=== PATIENT | male | born 1970 | race African-American/Black ===

== ENCOUNTER 2016-09-22 11:00 | Inpatient (IN) | payer OTHER ==
[2016-09-22 11:26] VITALS: BMI 29.7
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
[2016-09-22] MEDS ORDERED: guaiFENesin/D-METHORPHAN HB 10 ML UNIT-DOSE CUPS PO PRN (12:57)
[2016-09-22] MEDS ORDERED: MAGNESIUM HYDROX 2400MG/30ML ORAL SUSPENSION 30 ML CUP PO PRN (12:57)
[2016-09-22] MEDS ORDERED: MAGNESIUM CITRATE 300 ML BOTTLE PO PRN (12:57)
[2016-09-22] MEDS ORDERED: hydrOXYzine PAMOATE 50 MG CAPSULE (FP) PO PRN (12:57)
[2016-09-22] MEDS ORDERED: MAG HYDROX/AL HYDROX/SIMETH 30 ML UNIT-DOSE CUP PO PRN (12:57)
[2016-09-22] MEDS ORDERED: P-EPHED 60MG/TRIPROLIDI 2.5MG TABLET PO PRN (12:57)
[2016-09-22] MEDS ORDERED: ACETAMINOPHEN 325 MG TABLET (FP) PO PRN (12:57)
[2016-09-22] MEDS ORDERED: diphenhydrAMINE HCL 50 MG CAPSULE PO PRN (12:57)
[2016-09-22] MEDS ORDERED: chlordiazePOXIDE HCL 25 MG CAPSULE PO PRN (12:57)
[2016-09-22] MEDS ORDERED: MENTHOL/PHENOL 1 EACH UD MM PRN (12:57)
[2016-09-22] MEDS ORDERED: LOPERAMIDE HCL 2 MG CAPSULE PO PRN (12:57)
[2016-09-22] MEDS ORDERED: IBUPROFEN 400 MG TABLET (FP) PO PRN (12:57)
[2016-09-22] MEDS ORDERED: chlordiazePOXIDE HCL 25 MG CAPSULE PO ONE (14:15)
[2016-09-22 17:38] LABS: URINE APPEARANCE CLEAR; URINE BILIRUBIN NEGATIVE (NEGATIVE); URINE BLOOD NEGATIVE (NEGATIVE); URINE COLOR YELLOW; URINE GLUCOSE (UA) NEGATIVE (NEGATIVE); URINE KETONE NEGATIVE (NEGATIVE); URINE LEUK ESTERASE NEGATIVE (NEGATIVE); URINE NITRITE NEGATIVE (NEGATIVE); URINE PROTEIN 1+ (NEGATIVE); URINE UROBILINOGEN 2.0 E.U/dl E.U./dl (0.2-1.0)
[2016-09-22] MEDS: chlordiazePOXIDE HCL 25 MG CAPSULE PO SCH ×2 (17:41→22:27)
[2016-09-22 17:47] LABS: URINE HYALINE CAST 2 /lpf; URINE MUCUS MANY; URINE RBC 5 /hpf (0-3); URINE WBC 2 /hpf (3-5)
[2016-09-22] MEDS: THIAMINE HCL 100 MG TABLET (FP) PO SCH (22:27)
[2016-09-23] MEDS: chlordiazePOXIDE HCL 25 MG CAPSULE PO SCH ×4 (05:56→22:37)
[2016-09-23 09:59] LABS: MCHC 33.4 g/dl (32.0-35.9); MEAN CELL VOLUME 98.7 fl (80-96); MEAN PLT VOLUME 7.6 fl (7.5-11.1); PLATELET COUNT 309 K/MM3 (134-434); WHITE BLOOD COUNT 6.9 K/mm3 (4.0-10.0)
[2016-09-23 10:32] LABS: SGOT/AST 11 U/L (15-37); SGPT/ALT 13 U/L (12-78)
[2016-09-23 10:36] LABS: ALBUMIN 3.8 g/dl (3.4-5.0); ALK PHOS 84 U/L (45-117); ANION GAP 10 (8-16); BILIRUBIN,TOTAL 0.4 mg/dL (0.2-1.0); CALCIUM 9.1 mg/dL (8.5-10.1); CO2 27 mmol/L (21-32); CREATININE 1.1 mg/dL (0.7-1.3); GLUCOSE,RANDOM 89 mg/dL (74-106); TOT PROT 6.5 g/dl (6.4-8.2)
--- NOTE | 2016-09-23 11:02 | PN ---
[facility] CIWA - CIWA Score Nausea/Vomitin-Mild Nausea/No Vomiting Muscle Tremors: 4-Moderate,w/Arms Extend Anxiety: 3 Agitation: 3 Paroxysmal Sweats: 3 Orientation: 0-Oriented Tacttile Disturbances: 0-None Auditory Disturbances: 0-None Visual Disturbances: 0-None Headache: 0-None Present CIWA-Ar Total Score: 14 S Progress Note (SOAP) Subjective: Anxiety,tremors,sweating,interrupted sleep,restless Objective: 09/23/16 11:01 Vital Signs - 8 hr 09/23/16 09/23/16 09/23/16 03:39 06:29 09:58 Temperature 96.6 F L 96.7 F L Pulse Rate 68 67 Respiratory 18 16 18 Rate Blood Pressure 105/70 110/67 Laboratory Last Values WBC 6.9 K/mm3 (4.0-10.0) 09/23/16 07:40 RBC 4.08 M/mm3 (4.00-5.60) 09/23/16 07:40 Hgb 13.5 GM/dL (11.7-16.9) 09/23/16 07:40 Hct 40.3 % (35.4-49) 09/23/16 07:40 MCV 98.7 fl (80-96) H 09/23/16 07:40 MCHC 33.4 g/dl (32.0-35.9) 09/23/16 07:40 RDW 13.0 % (11.9-15.9) 09/23/16 07:40 Plt Count 309 K/MM3 (134-434) 09/23/16 07:40 MPV 7.6 fl (7.5-11.1) 09/23/16 07:40 Sodium 142 mmol/L (136-145) 09/23/16 07:40 Potassium 4.4 mmol/L (3.5-5.1) 09/23/16 07:40 Chloride 105 mmol/L (98-107) 09/23/16 07:40 Carbon Dioxide 27 mmol/L (21-32) 09/23/16 07:40 Anion Gap 10 (8-16) 09/23/16 07:40 BUN 14 mg/dL (7-18) D 09/23/16 07:40 Creatinine 1.1 mg/dL (0.7-1.3) D 09/23/16 07:40 Creat Clearance w eGFR > 60 (>60) 09/23/16 07:40 Random Glucose 89 mg/dL (74-106) 09/23/16 07:40 Calcium 9.1 mg/dL (8.5-10.1) 09/23/16 07:40 Total Bilirubin 0.4 mg/dL (0.2-1.0) 09/23/16 07:40 AST 11 U/L (15-37) L D 09/23/16 07:40 ALT 13 U/L (12-78) D 09/23/16 07:40 Alkaline Phosphatase 84 U/L (45-117) 09/23/16 07:40 Total Protein 6.5 g/dl (6.4-8.2) 09/23/16 07:40 Albumin 3.8 g/dl (3.4-5.0) 09/23/16 07:40 Urine Color Yellow 09/22/16 Unknown Urine Appearance Clear 09/22/16 Unknown Urine pH 5.0 (5.0-8.0) D 09/22/16 Unknown Ur Specific [place] 1.026 (1.001-1.035) 09/22/16 Unknown Urine Protein 1+ (NEGATIVE) H 09/22/16 Unknown Urine Glucose (UA) Negative (NEGATIVE) 09/22/16 Unknown Urine Ketones Negative (NEGATIVE) 09/22/16 Unknown Urine Blood Negative (NEGATIVE) 09/22/16 Unknown Urine Nitrite Negative (NEGATIVE) 09/22/16 Unknown Urine Bilirubin Negative (NEGATIVE) 09/22/16 Unknown Urine Urobilinogen 2.0 e.u/dl E.U./dl (0.2-1.0) 09/22/16 Unknown Ur Leukocyte Esterase Negative (NEGATIVE) 09/22/16 Unknown Urine RBC 5 /hpf (0-3) 09/22/16 Unknown Urine WBC 2 /hpf (3-5) 09/22/16 Unknown Ur Epithelial Cells Rare /hpf (FEW) 09/22/16 Unknown Hyaline Casts 2 /lpf 09/22/16 Unknown Urine Mucus Many 09/22/16 Unknown labs noted Assessment: 09/23/16 11:02 Withdrawal sx. Plan: Continue detox
[2016-09-23] MEDS: PRENATAL VITAMINS W/ FOLIC ACID TABLET (FP) PO SCH (11:14)
[2016-09-23 11:45] LABS: HIV 1 AGp24 NEGATIVE
[2016-09-23 11:47] LABS: HIV 1 & 2 AB NEGATIVE
[2016-09-23] MEDS: TOLNAFTATE 1% CREAM 15 GM TUBE TP SCH ×2 (12:07→22:57)
[2016-09-23 15:07] LABS: SICKLE CELL SCREEN NEGATIVE (NEGATIVE)
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
[2016-09-23] MEDS: THIAMINE HCL 100 MG TABLET (FP) PO SCH (22:36)
[2016-09-24] MEDS: chlordiazePOXIDE HCL 25 MG CAPSULE PO SCH ×2 (06:07→10:29)
[2016-09-24] MEDS: TOLNAFTATE 1% CREAM 15 GM TUBE TP SCH ×2 (10:28→22:44)
[2016-09-24] MEDS: PRENATAL VITAMINS W/ FOLIC ACID TABLET (FP) PO SCH (10:29)
--- NOTE | 2016-09-24 11:28 | PN ---
[facility] CIWA - CIWA Score Nausea/Vomitin-No Nausea/No Vomiting Muscle Tremors: 4-Moderate,w/Arms Extend Anxiety: 4-Mod. Anxious/Guarded Agitation: 4-Moderately Restless Paroxysmal Sweats: 1-Minimal Palms Moist Orientation: 0-Oriented Tacttile Disturbances: 3-Moderate Itch/Numb/Burn Auditory Disturbances: 0-None Visual Disturbances: 0-None Headache: 0-None Present CIWA-Ar Total Score: 16 BHS Progress Note (SOAP) Subjective: TREMORS,ANXIETY,IRRITABILITY. Objective: 09/24/16 11:28 Vital Signs Temperature 98.2 F 09/24/16 10:00 Pulse Rate 73 09/24/16 10:00 Respiratory Rate 18 09/24/16 10:00 Blood Pressure 104/68 09/24/16 10:00 O2 Sat by Pulse Oximetry (%) Laboratory Last Values WBC 6.9 K/mm3 (4.0-10.0) 09/23/16 07:40 RBC 4.08 M/mm3 (4.00-5.60) 09/23/16 07:40 Hgb 13.5 GM/dL (11.7-16.9) 09/23/16 07:40 Hct 40.3 % (35.4-49) 09/23/16 07:40 MCV 98.7 fl (80-96) H 09/23/16 07:40 MCHC 33.4 g/dl (32.0-35.9) 09/23/16 07:40 RDW 13.0 % (11.9-15.9) 09/23/16 07:40 Plt Count 309 K/MM3 (134-434) 09/23/16 07:40 MPV 7.6 fl (7.5-11.1) 09/23/16 07:40 Sickle Cell Screen Negative (NEGATIVE) 09/23/16 07:40 Sodium 142 mmol/L (136-145) 09/23/16 07:40 Potassium 4.4 mmol/L (3.5-5.1) 09/23/16 07:40 Chloride 105 mmol/L (98-107) 09/23/16 07:40 Carbon Dioxide 27 mmol/L (21-32) 09/23/16 07:40 Anion Gap 10 (8-16) 09/23/16 07:40 BUN 14 mg/dL (7-18) D 09/23/16 07:40 Creatinine 1.1 mg/dL (0.7-1.3) D 09/23/16 07:40 Creat Clearance w eGFR > 60 (>60) 09/23/16 07:40 Random Glucose 89 mg/dL (74-106) 09/23/16 07:40 Calcium 9.1 mg/dL (8.5-10.1) 09/23/16 07:40 Total Bilirubin 0.4 mg/dL (0.2-1.0) 09/23/16 07:40 AST 11 U/L (15-37) L D 09/23/16 07:40 ALT 13 U/L (12-78) D 09/23/16 07:40 Alkaline Phosphatase 84 U/L (45-117) 09/23/16 07:40 Total Protein 6.5 g/dl (6.4-8.2) 09/23/16 07:40 Albumin 3.8 g/dl (3.4-5.0) 09/23/16 07:40 Urine Color Yellow 09/22/16 Unknown Urine Appearance Clear 09/22/16 Unknown Urine pH 5.0 (5.0-8.0) D 09/22/16 Unknown Ur Specific [place] 1.026 (1.001-1.035) 09/22/16 Unknown Urine Protein 1+ (NEGATIVE) H 09/22/16 Unknown Urine Glucose (UA) Negative (NEGATIVE) 09/22/16 Unknown Urine Ketones Negative (NEGATIVE) 09/22/16 Unknown Urine Blood Negative (NEGATIVE) 09/22/16 Unknown Urine Nitrite Negative (NEGATIVE) 09/22/16 Unknown Urine Bilirubin Negative (NEGATIVE) 09/22/16 Unknown Urine Urobilinogen 2.0 e.u/dl E.U./dl (0.2-1.0) 09/22/16 Unknown Ur Leukocyte Esterase Negative (NEGATIVE) 09/22/16 Unknown Urine RBC 5 /hpf (0-3) 09/22/16 Unknown Urine WBC 2 /hpf (3-5) 09/22/16 Unknown Ur Epithelial Cells Rare /hpf (FEW) 09/22/16 Unknown Hyaline Casts 2 /lpf 09/22/16 Unknown Urine Mucus Many 09/22/16 Unknown RPR Titer Nonreactive (NONREACTIVE) 09/23/16 07:40 Hepatitis C Antibody 0.2 s/co ratio (0.0-0.9) 09/23/16 07:45 HIV 1&2 Antibody Screen Negative 09/23/16 07:45 HIV P24 Antigen Negative 09/23/16 07:45 Assessment: 09/24/16 11:28 WITHDRAWAL SX Plan: CONTINUE DETOX
--- NOTE | 2016-09-24 16:58 | EKG ---
Test Reason : Blood Pressure : / mmHG Vent. Rate : 072 BPM Atrial Rate : 072 BPM P-R Int : 190 ms QRS Dur : 104 ms QT Int : 412 ms P-R-T Axes : 045 027 019 degrees QTc Int : 451 ms NORMAL SINUS RHYTHM NORMAL ECG NO PREVIOUS ECGS AVAILABLE Confirmed by JOSE ALEJANDRO VAUGHN MD ([id number]) on 09/24/2016 4:57:46 PM Referred By: Confirmed By:JOSE ALEJANDRO VAUGHN MD
[2016-09-24] MEDS: chlordiazePOXIDE 5 MG CAPSULE PO SCH ×2 (17:30→22:44)
[2016-09-24] MEDS: THIAMINE HCL 100 MG TABLET (FP) PO SCH (22:44)
[2016-09-25] MEDS: chlordiazePOXIDE 5 MG CAPSULE PO SCH ×2 (05:45→10:36)
[2016-09-25] MEDS: PRENATAL VITAMINS W/ FOLIC ACID TABLET (FP) PO SCH (10:36)
[2016-09-25] MEDS: TOLNAFTATE 1% CREAM 15 GM TUBE TP SCH ×2 (10:37→22:41)
--- NOTE | 2016-09-25 11:01 | PN ---
S Progress Note (SOAP) Subjective: SLIGHT TREMORS, ANXIETY,FATIGUE. Objective: 09/25/16 11:00 Vital Signs Temperature 97.1 F L 09/25/16 10:23 Pulse Rate 77 09/25/16 10:23 Respiratory Rate 18 09/25/16 10:23 Blood Pressure 121/68 09/25/16 10:23 O2 Sat by Pulse Oximetry (%) Laboratory Last Values WBC 6.9 K/mm3 (4.0-10.0) 09/23/16 07:40 RBC 4.08 M/mm3 (4.00-5.60) 09/23/16 07:40 Hgb 13.5 GM/dL (11.7-16.9) 09/23/16 07:40 Hct 40.3 % (35.4-49) 09/23/16 07:40 MCV 98.7 fl (80-96) H 09/23/16 07:40 MCHC 33.4 g/dl (32.0-35.9) 09/23/16 07:40 RDW 13.0 % (11.9-15.9) 09/23/16 07:40 Plt Count 309 K/MM3 (134-434) 09/23/16 07:40 MPV 7.6 fl (7.5-11.1) 09/23/16 07:40 Sickle Cell Screen Negative (NEGATIVE) 09/23/16 07:40 Sodium 142 mmol/L (136-145) 09/23/16 07:40 Potassium 4.4 mmol/L (3.5-5.1) 09/23/16 07:40 Chloride 105 mmol/L (98-107) 09/23/16 07:40 Carbon Dioxide 27 mmol/L (21-32) 09/23/16 07:40 Anion Gap 10 (8-16) 09/23/16 07:40 BUN 14 mg/dL (7-18) D 09/23/16 07:40 Creatinine 1.1 mg/dL (0.7-1.3) D 09/23/16 07:40 Creat Clearance w eGFR > 60 (>60) 09/23/16 07:40 Random Glucose 89 mg/dL (74-106) 09/23/16 07:40 Calcium 9.1 mg/dL (8.5-10.1) 09/23/16 07:40 Total Bilirubin 0.4 mg/dL (0.2-1.0) 09/23/16 07:40 AST 11 U/L (15-37) L D 09/23/16 07:40 ALT 13 U/L (12-78) D 09/23/16 07:40 Alkaline Phosphatase 84 U/L (45-117) 09/23/16 07:40 Total Protein 6.5 g/dl (6.4-8.2) 09/23/16 07:40 Albumin 3.8 g/dl (3.4-5.0) 09/23/16 07:40 Urine Color Yellow 09/22/16 Unknown Urine Appearance Clear 09/22/16 Unknown Urine pH 5.0 (5.0-8.0) D 09/22/16 Unknown Ur Specific [place] 1.026 (1.001-1.035) 09/22/16 Unknown Urine Protein 1+ (NEGATIVE) H 09/22/16 Unknown Urine Glucose (UA) Negative (NEGATIVE) 09/22/16 Unknown Urine Ketones Negative (NEGATIVE) 09/22/16 Unknown Urine Blood Negative (NEGATIVE) 09/22/16 Unknown Urine Nitrite Negative (NEGATIVE) 09/22/16 Unknown Urine Bilirubin Negative (NEGATIVE) 09/22/16 Unknown Urine Urobilinogen 2.0 e.u/dl E.U./dl (0.2-1.0) 09/22/16 Unknown Ur Leukocyte Esterase Negative (NEGATIVE) 09/22/16 Unknown Urine RBC 5 /hpf (0-3) 09/22/16 Unknown Urine WBC 2 /hpf (3-5) 09/22/16 Unknown Ur Epithelial Cells Rare /hpf (FEW) 09/22/16 Unknown Hyaline Casts 2 /lpf 09/22/16 Unknown Urine Mucus Many 09/22/16 Unknown RPR Titer Nonreactive (NONREACTIVE) 09/23/16 07:40 Hepatitis C Antibody 0.2 s/co ratio (0.0-0.9) 09/23/16 07:45 HIV 1&2 Antibody Screen Negative 09/23/16 07:45 HIV P24 Antigen Negative 09/23/16 07:45 Assessment: 09/25/16 11:01 WITHDRAWAL SX Plan: CONTINUE DETOX
[2016-09-25] MEDS: chlordiazePOXIDE HCL 10 MG CAPSULE PO SCH ×2 (17:32→22:41)
[2016-09-25] MEDS: THIAMINE HCL 100 MG TABLET (FP) PO SCH (22:41)
[2016-09-26] MEDS: chlordiazePOXIDE HCL 10 MG CAPSULE PO SCH ×2 (05:56→10:33)
[2016-09-26 09:25] VITALS: BP 115/70; PULSE 81; TEMP 97.2
[2016-09-26] MEDS: PRENATAL VITAMINS W/ FOLIC ACID TABLET (FP) PO SCH (10:33)
[2016-09-26] MEDS: TOLNAFTATE 1% CREAM 15 GM TUBE TP SCH (10:34)
--- NOTE | 2016-09-26 11:20 | DS ---
[facility] Detox Discharge Summary Admission Date: 09/22/16 Discharge Date: 09/26/16 - History Present History: Alcohol Dependence, Cannabis Dependence, Cocaine Dependence Additional Comments: DETOX COMPLETED. ALERT O X 3. NAD. REFERRED TO REHAB. Pertinent Past History: S/P CVA - Physical Exam Results Vital Signs: Vital Signs Temperature 97.2 F L 09/26/16 09:24 Pulse Rate 81 09/26/16 09:24 Respiratory Rate 20 09/26/16 09:24 Blood Pressure 115/70 09/26/16 09:24 O2 Sat by Pulse Oximetry (%) - Treatment Hospital Course: Detox Protocol Followed, Detoxed Safely, Responded well, Discharged Condition Good, Rehab Referral Accepted Patient has Accepted a Rehab Referral to: [facility] [address] [place] [address] - [facility] Discharge Medications: Ambulatory Orders Oxycodone HCl/Acetaminophen [Percocet 10-325 mg Tablet] 2 each PO Q6H PRN - Diagnosis (1) Alcohol dependence with uncomplicated withdrawal Current Visit: Yes Status: Acute (2) Cocaine dependence, uncomplicated Current Visit: Yes Status: Acute (3) Nicotine dependence Current Visit: Yes Status: Acute Qualifiers: Nicotine product type: cigarettes Substance use status: in withdrawal Qualified Code(s): F17.213 - Nicotine dependence, cigarettes, with withdrawal (4) History of facial fracture Current Visit: Yes Status: Chronic (5) Cannabis dependence, uncomplicated Current Visit: Yes Status: Acute (6) Drug-induced mood disorder Current Visit: Yes Status: Acute - AMA Did Patient Leave Against Medical Advice: No
== END 2016-09-26 12:06 | disposition other institution (70) | DRG 774 ==
LOC: YASAS 11:00 → Y3N 13:44
PROVIDERS: ADMIT Internal Medicine Addiction Medicine; ATTEND Internal Medicine Addiction Medicine
PROC: HZ2ZZZZ Detoxification Services for Substance Abuse Treatment (ICD-10-PCS; principal; 2016-09-22)
DX: F10.230 Alcohol dependence with withdrawal, uncomplicated (principal); F14.20 Cocaine dependence, uncomplicated; F12.20 Cannabis dependence, uncomplicated; F17.210 Nicotine dependence, cigarettes, uncomplicated; F19.24 Other psychoactive substance dependence with psychoactive substance-induced mood disorder; Z87.81 Personal history of (healed) traumatic fracture; Z86.73 Personal history of transient ischemic attack (TIA), and cerebral infarction without residual deficits
CPT/HCPCS: 36415; 80053; 81003; 81015; 85027; 85660; 86593; 87389; 93005; 93010

== ENCOUNTER 2016-09-26 12:27 | Inpatient (IN) | payer OTHER ==
[2016-09-26] MEDS ORDERED: MAG HYDROX/AL HYDROX/SIMETH 30 ML UNIT-DOSE CUP PO PRN (13:34)
[2016-09-26] MEDS ORDERED: MENTHOL/PHENOL 1 EACH UD MM PRN (13:34)
[2016-09-26] MEDS ORDERED: IBUPROFEN 400 MG TABLET (FP) PO PRN (13:34)
[2016-09-26] MEDS ORDERED: P-EPHED 60MG/TRIPROLIDI 2.5MG TABLET PO PRN (13:34)
[2016-09-26] MEDS ORDERED: MAGNESIUM HYDROX 2400MG/30ML ORAL SUSPENSION 30 ML CUP PO PRN (13:34)
[2016-09-26] MEDS ORDERED: guaiFENesin/D-METHORPHAN HB 10 ML UNIT-DOSE CUPS PO PRN (13:34)
[2016-09-26] MEDS ORDERED: MAGNESIUM CITRATE 300 ML BOTTLE PO PRN (13:34)
[2016-09-26] MEDS ORDERED: ACETAMINOPHEN 325 MG TABLET (FP) PO PRN (13:34)
[2016-09-26] MEDS ORDERED: diphenhydrAMINE HCL 50 MG CAPSULE PO PRN (13:34)
[2016-09-26] MEDS ORDERED: LOPERAMIDE HCL 2 MG CAPSULE PO PRN (13:34)
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
[2016-09-26] MEDS ORDERED: THIAMINE HCL 100 MG TABLET (FP) PO SCH (22:00)
[2016-09-27 07:25] VITALS: BP 123/61; PULSE 71; TEMP 97
[2016-09-27] MEDS ORDERED: PRENATAL VITAMINS W/ FOLIC ACID TABLET (FP) PO SCH (10:00)
--- NOTE | 2016-09-27 15:00 | PN ---
Psychiatric Progress Note Vital Signs: Vital Signs Period Temp Pulse Resp BP Sys/Silva Pulse Ox Last 24 Hr 97.0 F 71-74 16-18 123/61 Date of Session: 09/27/16 Chief Complaint:: "I amleaving treatment" HPI: patient is a 45 year old with history of alcohol, cocaine, nicotine depencence comorbid substance induced mood disorder. ROS: wnl Current Medications: Active Medications Generic Name Dose Route Start Last Admin Trade Name Freq PRN Reason Stop Dose Admin Acetaminophen 650 mg 09/26/16 13:34 Tylenol - PO Q4H PRN FEVER OR PAIN Al Hydroxide/Mg Hydroxide 30 ml 09/26/16 13:34 Mylanta Oral Suspension - PO Q6H PRN DYSPEPSIA Diphenhydramine HCl 50 mg 09/26/16 13:34 Benadryl - PO HSMR1 PRN FOR ITCHING Eucalyptus/Menthol/Phenol/Sorbitol 1 each 09/26/16 13:34 Cepastat Lozenge - MM Q4H PRN SORE THROAT Guaifenesin 10 ml 09/26/16 13:34 Robitussin Dm - PO Q6H PRN COUGH Ibuprofen 400 mg 09/26/16 13:34 Motrin - PO Q6H PRN PAIN Loperamide HCl 4 mg 09/26/16 13:34 Imodium - PO Q6H PRN DIARRHEA Magnesium Citrate 300 ml 09/26/16 13:34 Citroma - PO 09/28/16 13:35 Q48H PRN CONSTIPATION Magnesium Hydroxide 30 ml 09/26/16 13:34 Milk Of Magnesia - PO DAILY PRN CONSTIPATION Multivit/Folic Acid/Iron 1 tab 09/27/16 10:00 09/27/16 09:47 Vitamins (Sjr) - PO 1 tab DAILY BONITA Administration Pseudoephedrine/Triprolidine 1 combo 09/26/16 13:34 Actifed - PO TID PRN NASAL CONGESTION Thiamine HCl 100 mg 09/26/16 22:00 09/26/16 21:37 Vitamin B1 - PO 100 mg HS BONITA Administration Current Side Effect: No Lab tests ordered: No Lab tests reviewed: Yes Provider note:: met with the patient to explore reasons for not completiong treatment and signing ama, patient reports that he feels comfined and "there is no freedom here, I can't watch TV when I want I can' t do anything I want", reports feels "like in jail". Patient was encouraged to stay and focus on his treatment , but continues with discharge process. patient stable. Total face to face time:: 35 Mental Status Exam - Mental Status Exam Alert and Oriented to: Time, Place, Person Cognitive Function: Grossly Intact Patient Appearance: Well Groomed Mood: Irritable Affect: Appropriate, Mood Congruent Patient Behavior: Appropriate, Cooperative Speech Pattern: Clear, Appropriate Voice Loudness: Normal Thought Process: Intact Thought Disorder: Not Present Hallucinations: Denies Suicidal Ideation: Denies Homicidal Ideation: Denies Insight/Judgement: Fair Sleep: Fair Appetite: Good Muscle strength/Tone: Normal Gait/Station: Normal Psychiatric Treatment Plan - Problem List (1) Drug-induced mood disorder Current Visit: No Comment: . (2) Nicotine dependence Current Visit: No Qualifiers: Nicotine product type: cigarettes Substance use status: in withdrawal Qualified Code(s): F17.213 - Nicotine dependence, cigarettes, with withdrawal Comment: . (3) Alcohol dependence Current Visit: Yes (4) Cocaine dependence Current Visit: Yes
== END 2016-09-27 15:45 | disposition left against medical advice (07) | DRG 770 ==
LOC: YASAS 12:27 → Y5N 12:29
PROVIDERS: ADMIT Psychiatry & Neurology Psychiatry; ATTEND Psychiatry & Neurology Psychiatry
PROC: HZ42ZZZ Group Counseling for Substance Abuse Treatment, Cognitive-Behavioral (ICD-10-PCS; principal; 2016-09-27)
DX: F10.20 Alcohol dependence, uncomplicated (principal); F14.20 Cocaine dependence, uncomplicated; F17.213 Nicotine dependence, cigarettes, with withdrawal; F19.24 Other psychoactive substance dependence with psychoactive substance-induced mood disorder

== ENCOUNTER 2016-11-01 11:13 | Inpatient (IN) | payer OTHER ==
[2016-11-01 15:04] VITALS: BMI 29.0
--- NOTE | 2016-11-01 16:26 | HP ---
CIWA Score - CIWA Score Nausea/Vomitin-Mild Nausea/No Vomiting Muscle Tremors: 4-Moderate,w/Arms Extend Anxiety: 4-Mod. Anxious/Guarded Agitation: 4-Moderately Restless Paroxysmal Sweats: 1-Minimal Palms Moist Orientation: 0-Oriented Tacttile Disturbances: 0-None Auditory Disturbances: 0-None Visual Disturbances: 0-None Headache: 0-None Present CIWA-Ar Total Score: 14 Admission ROS BHS - HPI Chief Complaint: withdrawal sx Allergies/Adverse Reactions: Allergies Allergy/AdvReac Type Severity Reaction Status Date / Time No Known Allergies Allergy Verified 09/26/16 13:20 History of Present Illness: 45 years old male with long history of alcohol cocaine marijuana nicotine dependence denies medical refuses psychiatric referral, reports able to chew regular food and drink fluid without consequences of stroke 2011, is admitted to detox Exam Limitations: No Limitations - Ebola screening Have you traveled outside of the country in the last 21 days: No Have you had contact with anyone from an Ebola affected area: No Have you been sick,other than usual withdrawal symptoms: No Do you have a fever: No - Review of Systems Constitutional: Chills, Changes in sleep, Weight Stable EENT: reports: No Symptoms Reported Respiratory: reports: No Symptoms reported Cardiac: reports: No Symptoms Reported GI: reports: Nausea, Poor Fluid Intake, Abdominal cramping : reports: No Symptoms Reported Musculoskeletal: reports: No Symptoms Reported Integumentary: reports: No Symptoms Reported Neuro: reports: Tremors Endocrine: reports: No Symptoms Reported Hematology: reports: No Symptoms Reported Psychiatric: reports: Judgement Intact, Mood/Affect Appropiate, Orientated x3 Other Systems: Reviewed and Negative Patient History - Patient Medical History Hx Anemia: No Hx Asthma: No Hx Chronic Obstructive Pulmonary Disease (COPD): No Hx Cancer: No Hx Cardiac Disorders: No Hx Congestive Heart Failure: No Hx Hypertension: No Hx Hypercholesterolemia: No Hx Pacemaker: No HX Cerebrovascular Accident: Yes (CVA w/ left hemiparesis in 2011; denies consequences) Hx Seizures: No Hx Dementia: No Hx Diabetes: No Hx Gastrointestinal Disorders: No Hx Liver Disease: No Hx Genitourinary Disorders: No Hx Sexually Transmitted Disorders: Yes (GONORRHEA AT THE AGE OF 15) Hx Renal Disease (ESRD): No Hx Thyroid Disease: No Hx Human Immunodeficiency Virus (HIV): No (NEGATIVE HX-LAST 11/2014) Hx Hepatitis C: No (NEGATIVE, LAST TESTED: 2015) Hx Depression: No Hx Suicide Attempt: Yes (2005 walking in and out the traffic no consequences) Hx Bipolar Disorder: No Hx Schizophrenia: No - Patient Surgical History Past Surgical History: No Hx Neurologic Surgery: No Hx Cataract Extraction: No Hx Cardiac Surgery: No Hx Lung Surgery: No Hx Breast Surgery: No Hx Breast Biopsy: No Hx Abdominal Surgery: No Hx Appendectomy: No Hx Cholecystectomy: No Hx Genitourinary Surgery: No Hx Orthopedic Surgery: No Other Surgical History: MULTIPLE FACIAL FRACTURE BY SLAMBING TO THE GROUND BY SOME ONE. - PPD History Previous Implant?: Yes Documented Results: Negative w/proof Implanted On Prior [facility] Admission?: Yes Date: 01/08/16 Results: 0 mm PPD to be Administered?: No - Smoking Cessation Smoking history: Current every day smoker Have you smoked in the past 12 months: Yes Aproximately how many cigarettes per day: 3 Cigars Per Day: 0 Hx Chewing Tobacco Use: No Initiated information on smoking cessation: Yes 'Breaking Loose' booklet given: 11/01/16 - Substance & Tx. History Hx Alcohol Use: Yes Hx Substance Use: Yes Substance Use Type: Alcohol, Cocaine, Marijuana Hx Substance Use Treatment: Yes - Substances Abused Alcohol Route: Oral Frequency: Daily Amount used: 2 pints volka Age of first use: 15 Date of Last Use: 11/01/16 Family Disease History - Family Disease History Family Disease History: Diabetes: Grandparent (), Heart Disease: Mother () Admission Physical Exam S - Vital Signs Vital Signs: Vital Signs - 24 hr 11/01/16 15:02 Temperature 96.5 F L Pulse Rate 83 Respiratory 18 Rate Blood Pressure 110/66 - Physical General Appearance: Yes: Nourished, Appropriately Dressed, Mild Distress, Tremorous, Irritable, Sweating, Anxious HEENTM: Yes: Hearing grossly Normal, Normal ENT Inspection, Normocephalic, Normal Voice Respiratory: Yes: Chest Non-Tender, Lungs Clear, Normal Breath Sounds, No Respiratory Distress, No Accessory Muscle Use Neck: Yes: Supple, Trachea in good position Breast: Yes: Breasts Symetrical Cardiology: Yes: Regular Rhythm, Regular Rate, S1, S2 Abdominal: Yes: Non Tender, Soft Genitourinary: Yes: Within Normal Limits Musculoskeletal: Yes: full range of Motion, Gait Steady Extremities: Yes: Normal Inspection, Normal Range of Motion, Non-Tender, Tremors , Other Neurological: Yes: Fully Oriented, Motor Strength 5/5, Normal Mood/Affect, Normal Response Integumentary: Yes: Warm Lymphatic: Yes: Within Normal Limits - Diagnostic (1) Alcohol dependence with uncomplicated withdrawal Current Visit: Yes Status: Acute (2) Cannabis dependence, uncomplicated Current Visit: Yes Status: Chronic (3) Cocaine dependence, uncomplicated Current Visit: Yes Status: Chronic (4) Nicotine dependence Current Visit: Yes Status: Acute Qualifiers: Nicotine product type: cigarettes Substance use status: in withdrawal Qualified Code(s): F17.213 - Nicotine dependence, cigarettes, with withdrawal Comment: . Cleared for Admission [facility] - Detox or Rehab [facility] Level of Care: Medically Managed Detox Regimen/Protocol: Librium [facility] Breath Alcohol Content Breath Alcohol Content: 0 Urine Drug Screen - Results Drug Screen Negative: No Urine Drug Screen Results: THC-Marijuana, LORENZO-Cocaine
[2016-11-01] MEDS ORDERED: MENTHOL/PHENOL 1 EACH UD MM PRN (16:34)
[2016-11-01] MEDS ORDERED: IBUPROFEN 400 MG TABLET (FP) PO PRN (16:34)
[2016-11-01] MEDS ORDERED: ACETAMINOPHEN 325 MG TABLET (FP) PO PRN (16:34)
[2016-11-01] MEDS ORDERED: NICOTINE POLACRILEX 2 MG GUM BC PRN (16:34)
[2016-11-01] MEDS ORDERED: P-EPHED 60MG/TRIPROLIDI 2.5MG TABLET PO PRN (16:34)
[2016-11-01] MEDS ORDERED: MAG HYDROX/AL HYDROX/SIMETH 30 ML UNIT-DOSE CUP PO PRN (16:34)
[2016-11-01] MEDS ORDERED: MAGNESIUM CITRATE 300 ML BOTTLE PO PRN (16:34)
[2016-11-01] MEDS ORDERED: chlordiazePOXIDE HCL 25 MG CAPSULE PO PRN (16:34)
[2016-11-01] MEDS ORDERED: guaiFENesin/D-METHORPHAN HB 10 ML UNIT-DOSE CUPS PO PRN (16:34)
[2016-11-01] MEDS ORDERED: MAGNESIUM HYDROX 2400MG/30ML ORAL SUSPENSION 30 ML CUP PO PRN (16:34)
[2016-11-01] MEDS ORDERED: LOPERAMIDE HCL 2 MG CAPSULE PO PRN (16:34)
[2016-11-01] MEDS: diphenhydrAMINE HCL 50 MG CAPSULE PO PRN (22:08)
[2016-11-01] MEDS: THIAMINE HCL 100 MG TABLET (FP) PO SCH (22:08)
[2016-11-01] MEDS: chlordiazePOXIDE HCL 25 MG CAPSULE PO SCH (22:08)
[2016-11-01 23:27] LABS: URINE APPEARANCE SLCLOUDY; URINE BILIRUBIN NEGATIVE (NEGATIVE); URINE BLOOD NEGATIVE (NEGATIVE); URINE COLOR YELLOW; URINE GLUCOSE (UA) NEGATIVE (NEGATIVE); URINE KETONE NEGATIVE (NEGATIVE); URINE LEUK ESTERASE NEGATIVE (NEGATIVE); URINE NITRITE NEGATIVE (NEGATIVE); URINE PROTEIN NEGATIVE (NEGATIVE); URINE UROBILINOGEN 2.0 E.U/dl E.U./dl (0.2-1.0)
[2016-11-02] MEDS: chlordiazePOXIDE HCL 25 MG CAPSULE PO SCH ×4 (05:57→22:16)
[2016-11-02] MEDS: NICOTINE 14 MG/24 HOURS TOPICAL PATCH TD SCH (10:20)
[2016-11-02] MEDS: PRENATAL VITAMINS W/ FOLIC ACID TABLET (FP) PO SCH (10:20)
[2016-11-02 11:11] LABS: MCH 33.5 pg (25.7-33.7); MCHC 33.1 g/dl (32.0-35.9); MEAN CELL VOLUME 101.3 fl (80-96); MEAN PLT VOLUME 7.7 fl (7.5-11.1); PLATELET COUNT 341 K/MM3 (134-434); RDW 13.3 % (11.9-15.9); WHITE BLOOD COUNT 7.9 K/mm3 (4.0-10.0)
[2016-11-02 11:16] LABS: ALBUMIN 4.1 g/dl (3.4-5.0); ANION GAP 11 (8-16); CALCIUM 9.3 mg/dL (8.5-10.1); CO2 27 mmol/L (21-32); COCKROFT - GAULT 112.21; CREATININE 1.1 mg/dL (0.7-1.3); GLUCOSE,RANDOM 100 mg/dL (74-106); SGOT/AST 20 U/L (15-37); SGPT/ALT 25 U/L (12-78)
[2016-11-02 11:17] LABS: ALK PHOS 91 U/L (45-117); BILIRUBIN,TOTAL 0.5 mg/dL (0.2-1.0); TOT PROT 7.2 g/dl (6.4-8.2)
--- NOTE | 2016-11-02 11:26 | EKG ---
Test Reason : Blood Pressure : / mmHG Vent. Rate : 075 BPM Atrial Rate : 075 BPM P-R Int : 174 ms QRS Dur : 096 ms QT Int : 378 ms P-R-T Axes : 048 029 020 degrees QTc Int : 422 ms NORMAL SINUS RHYTHM NORMAL ECG WHEN COMPARED WITH ECG OF 22-SEP-2016 13:26, NO SIGNIFICANT CHANGE WAS FOUND Confirmed by KING RAMIRES MD ([id number]) on 11/02/2016 11:25:39 AM Referred By: Confirmed By:KING RAMIRES MD
[2016-11-02] MEDS: TOLNAFTATE 1% CREAM 15 GM TUBE TP SCH ×2 (12:11→22:51)
[2016-11-02 12:26] LABS: HIV 1 & 2 AB NEGATIVE; HIV 1 AGp24 NEGATIVE
--- NOTE | 2016-11-02 15:35 | PN ---
S CIWA - CIWA Score Nausea/Vomitin Muscle Tremors: 3 Anxiety: 4-Mod. Anxious/Guarded Agitation: 2 Paroxysmal Sweats: 3 Orientation: 0-Oriented Tacttile Disturbances: 3-Moderate Itch/Numb/Burn Auditory Disturbances: 1-Very Mild Visual Disturbances: 0-None Headache: 0-None Present CIWA-Ar Total Score: 19 S Progress Note (SOAP) Subjective: Interrupted sleep, Body Aches, Nausea, Sweating. Objective: PT. A & O X 3. 11/02/16 15:34 Vital Signs Temperature 96.0 F L 11/02/16 13:43 Pulse Rate 74 11/02/16 13:43 Respiratory Rate 18 11/02/16 13:43 Blood Pressure 107/67 11/02/16 13:43 O2 Sat by Pulse Oximetry (%) Laboratory Last Values WBC 7.9 K/mm3 (4.0-10.0) 11/02/16 06:05 RBC 4.20 M/mm3 (4.00-5.60) 11/02/16 06:05 Hgb 14.1 GM/dL (11.7-16.9) 11/02/16 06:05 Hct 42.6 % (35.4-49) 11/02/16 06:05 MCV 101.3 fl (80-96) H 11/02/16 06:05 MCHC 33.1 g/dl (32.0-35.9) 11/02/16 06:05 RDW 13.3 % (11.9-15.9) 11/02/16 06:05 Plt Count 341 K/MM3 (134-434) 11/02/16 06:05 MPV 7.7 fl (7.5-11.1) 11/02/16 06:05 Sodium 142 mmol/L (136-145) 11/02/16 06:05 Potassium 4.0 mmol/L (3.5-5.1) 11/02/16 06:05 Chloride 104 mmol/L (98-107) 11/02/16 06:05 Carbon Dioxide 27 mmol/L (21-32) 11/02/16 06:05 Anion Gap 11 (8-16) 11/02/16 06:05 BUN 13 mg/dL (7-18) 11/02/16 06:05 Creatinine 1.1 mg/dL (0.7-1.3) 11/02/16 06:05 Creat Clearance w eGFR > 60 (>60) 11/02/16 06:05 Random Glucose 100 mg/dL (74-106) 11/02/16 06:05 Calcium 9.3 mg/dL (8.5-10.1) 11/02/16 06:05 Total Bilirubin 0.5 mg/dL (0.2-1.0) D 11/02/16 06:05 AST 20 U/L (15-37) D 11/02/16 06:05 ALT 25 U/L (12-78) D 11/02/16 06:05 Alkaline Phosphatase 91 U/L (45-117) 11/02/16 06:05 Total Protein 7.2 g/dl (6.4-8.2) 11/02/16 06:05 Albumin 4.1 g/dl (3.4-5.0) 11/02/16 06:05 Urine Color Yellow 11/01/16 21:25 Urine Appearance Slcloudy 11/01/16 21:25 Urine pH 5.0 (5.0-8.0) 11/01/16 21:25 Ur Specific [place] 1.030 (1.001-1.035) 11/01/16 21:25 Urine Protein Negative (NEGATIVE) 11/01/16 21:25 Urine Glucose (UA) Negative (NEGATIVE) 11/01/16 21:25 Urine Ketones Negative (NEGATIVE) 11/01/16 21:25 Urine Blood Negative (NEGATIVE) 11/01/16 21:25 Urine Nitrite Negative (NEGATIVE) 11/01/16 21:25 Urine Bilirubin Negative (NEGATIVE) 11/01/16 21:25 Urine Urobilinogen 2.0 e.u/dl E.U./dl (0.2-1.0) 11/01/16 21:25 Ur Leukocyte Esterase Negative (NEGATIVE) 11/01/16 21:25 RPR Titer Nonreactive (NONREACTIVE) 11/02/16 06:05 HIV 1&2 Antibody Screen Negative 11/02/16 07:40 HIV P24 Antigen Negative 11/02/16 07:40 LABS NOTED. Assessment: 11/02/16 15:35 WITHDRAWAL SYMPTOMS. Plan: CONTINUE DETOX. ADVISED PATIENT TO FOLLOW-UP WITH [facility] / REHAB MEDICAL PROVIDER AFTER DISCHARGE FROM DETOX FOR GENERAL MEDICAL ASSESSMENT AND FOR ABNORMAL ADMISSION LAB VALUES.
[2016-11-02] MEDS: THIAMINE HCL 100 MG TABLET (FP) PO SCH (22:54)
[2016-11-03] MEDS: chlordiazePOXIDE HCL 25 MG CAPSULE PO SCH ×3 (05:55→17:11)
[2016-11-03] MEDS: PRENATAL VITAMINS W/ FOLIC ACID TABLET (FP) PO SCH (10:14)
[2016-11-03] MEDS: NICOTINE 14 MG/24 HOURS TOPICAL PATCH TD SCH (10:15)
[2016-11-03] MEDS: TOLNAFTATE 1% CREAM 15 GM TUBE TP SCH ×2 (10:46→22:28)
--- NOTE | 2016-11-03 15:00 | PN ---
S CIWA - CIWA Score Nausea/Vomitin Muscle Tremors: 4-Moderate,w/Arms Extend Anxiety: 4-Mod. Anxious/Guarded Agitation: 4-Moderately Restless Paroxysmal Sweats: No Perspiration Orientation: 0-Oriented Tacttile Disturbances: 1-Very Mild Itch/Numbness Auditory Disturbances: 0-None Visual Disturbances: 0-None Headache: 2-Mild CIWA-Ar Total Score: 18 BHS Progress Note (SOAP) Subjective: Nausea, sweating, anxious, interrupted sleep Objective: 11/03/16 14:59 Last Vital Signs Temp Pulse Resp BP Pulse Ox 97.5 F L 77 18 109/64 11/03/16 13:37 11/03/16 13:37 11/03/16 13:37 11/03/16 13:37 Laboratory Tests 11/01/16 11/02/16 11/02/16 21:25 06:05 06:05 WBC 7.9 RBC 4.20 Hgb 14.1 Hct 42.6 MCV 101.3 H MCHC 33.1 RDW 13.3 Plt Count 341 MPV 7.7 Sodium 142 Potassium 4.0 Chloride 104 Carbon Dioxide 27 Anion Gap 11 BUN 13 Creatinine 1.1 Creat Clearance w eGFR > 60 Random Glucose 100 Calcium 9.3 Total Bilirubin 0.5 D AST 20 D ALT 25 D Alkaline Phosphatase 91 Total Protein 7.2 Albumin 4.1 Urine Color Yellow Urine Appearance Slcloudy Urine pH 5.0 Ur Specific [place] 1.030 Urine Protein Negative Urine Glucose (UA) Negative Urine Ketones Negative Urine Blood Negative Urine Nitrite Negative Urine Bilirubin Negative Urine Urobilinogen 2.0 e.u/dl Ur Leukocyte Esterase Negative RPR Titer HIV 1&2 Antibody Screen HIV P24 Antigen 11/02/16 11/02/16 06:05 07:40 WBC RBC Hgb Hct MCV MCHC RDW Plt Count MPV Sodium Potassium Chloride Carbon Dioxide Anion Gap BUN Creatinine Creat Clearance w eGFR Random Glucose Calcium Total Bilirubin AST ALT Alkaline Phosphatase Total Protein Albumin Urine Color Urine Appearance Urine pH Ur Specific [place] Urine Protein Urine Glucose (UA) Urine Ketones Urine Blood Urine Nitrite Urine Bilirubin Urine Urobilinogen Ur Leukocyte Esterase RPR Titer Nonreactive HIV 1&2 Antibody Screen Negative HIV P24 Antigen Negative Labs noted Assessment: 11/03/16 15:00 Withdrawal symptoms Plan: Continue detox
[2016-11-03] MEDS: chlordiazePOXIDE 5 MG CAPSULE PO SCH (22:27)
[2016-11-03] MEDS: diphenhydrAMINE HCL 50 MG CAPSULE PO PRN (22:27)
[2016-11-03] MEDS: THIAMINE HCL 100 MG TABLET (FP) PO SCH (22:28)
[2016-11-04] MEDS: chlordiazePOXIDE 5 MG CAPSULE PO SCH ×3 (06:08→18:27)
[2016-11-04] MEDS: NICOTINE 14 MG/24 HOURS TOPICAL PATCH TD SCH (10:26)
[2016-11-04] MEDS: TOLNAFTATE 1% CREAM 15 GM TUBE TP SCH ×2 (10:27→22:11)
[2016-11-04] MEDS: PRENATAL VITAMINS W/ FOLIC ACID TABLET (FP) PO SCH (10:27)
--- NOTE | 2016-11-04 11:51 | PN ---
BHS Progress Note (SOAP) Subjective: Sweating,interrupted sleep,restless. Objective: 11/04/16 11:50 Vital Signs - 8 hr 11/04/16 11/04/16 06:44 09:18 Temperature 96.8 F L 96.1 F L Pulse Rate 74 72 Respiratory 18 20 Rate Blood Pressure 120/83 110/69 Laboratory Last Values WBC 7.9 K/mm3 (4.0-10.0) 11/02/16 06:05 RBC 4.20 M/mm3 (4.00-5.60) 11/02/16 06:05 Hgb 14.1 GM/dL (11.7-16.9) 11/02/16 06:05 Hct 42.6 % (35.4-49) 11/02/16 06:05 MCV 101.3 fl (80-96) H 11/02/16 06:05 MCHC 33.1 g/dl (32.0-35.9) 11/02/16 06:05 RDW 13.3 % (11.9-15.9) 11/02/16 06:05 Plt Count 341 K/MM3 (134-434) 11/02/16 06:05 MPV 7.7 fl (7.5-11.1) 11/02/16 06:05 Sodium 142 mmol/L (136-145) 11/02/16 06:05 Potassium 4.0 mmol/L (3.5-5.1) 11/02/16 06:05 Chloride 104 mmol/L (98-107) 11/02/16 06:05 Carbon Dioxide 27 mmol/L (21-32) 11/02/16 06:05 Anion Gap 11 (8-16) 11/02/16 06:05 BUN 13 mg/dL (7-18) 11/02/16 06:05 Creatinine 1.1 mg/dL (0.7-1.3) 11/02/16 06:05 Creat Clearance w eGFR > 60 (>60) 11/02/16 06:05 Random Glucose 100 mg/dL (74-106) 11/02/16 06:05 Calcium 9.3 mg/dL (8.5-10.1) 11/02/16 06:05 Total Bilirubin 0.5 mg/dL (0.2-1.0) D 11/02/16 06:05 AST 20 U/L (15-37) D 11/02/16 06:05 ALT 25 U/L (12-78) D 11/02/16 06:05 Alkaline Phosphatase 91 U/L (45-117) 11/02/16 06:05 Total Protein 7.2 g/dl (6.4-8.2) 11/02/16 06:05 Albumin 4.1 g/dl (3.4-5.0) 11/02/16 06:05 Urine Color Yellow 11/01/16 21:25 Urine Appearance Slcloudy 11/01/16 21:25 Urine pH 5.0 (5.0-8.0) 11/01/16 21:25 Ur Specific [place] 1.030 (1.001-1.035) 11/01/16 21:25 Urine Protein Negative (NEGATIVE) 11/01/16 21:25 Urine Glucose (UA) Negative (NEGATIVE) 11/01/16 21:25 Urine Ketones Negative (NEGATIVE) 11/01/16 21:25 Urine Blood Negative (NEGATIVE) 11/01/16 21:25 Urine Nitrite Negative (NEGATIVE) 11/01/16 21:25 Urine Bilirubin Negative (NEGATIVE) 11/01/16 21:25 Urine Urobilinogen 2.0 e.u/dl E.U./dl (0.2-1.0) 11/01/16 21:25 Ur Leukocyte Esterase Negative (NEGATIVE) 11/01/16 21:25 RPR Titer Nonreactive (NONREACTIVE) 11/02/16 06:05 HIV 1&2 Antibody Screen Negative 11/02/16 07:40 HIV P24 Antigen Negative 11/02/16 07:40 labs noted Assessment: 11/04/16 11:50 Withdrawal sx. Plan: Continue detox
[2016-11-04] MEDS: THIAMINE HCL 100 MG TABLET (FP) PO SCH (22:11)
[2016-11-04] MEDS: diphenhydrAMINE HCL 50 MG CAPSULE PO PRN (22:11)
[2016-11-04] MEDS: chlordiazePOXIDE HCL 10 MG CAPSULE PO SCH (22:11)
[2016-11-05] MEDS: chlordiazePOXIDE HCL 10 MG CAPSULE PO SCH ×3 (05:42→17:11)
--- NOTE | 2016-11-05 09:59 | PN ---
BHS Progress Note (SOAP) Subjective: DECREASED ANXIETY,SWEATS. Objective: 11/05/16 09:58 Vital Signs Temperature 96.6 F L 11/05/16 09:49 Pulse Rate 76 11/05/16 09:49 Respiratory Rate 18 11/05/16 09:49 Blood Pressure 122/75 11/05/16 09:49 O2 Sat by Pulse Oximetry (%) Assessment: 11/05/16 09:58 WITHDRAWAL SX Plan: CONTINUE DETOX
[2016-11-05] MEDS: PRENATAL VITAMINS W/ FOLIC ACID TABLET (FP) PO SCH (10:31)
[2016-11-05] MEDS: NICOTINE 14 MG/24 HOURS TOPICAL PATCH TD SCH (10:31)
[2016-11-05] MEDS: TOLNAFTATE 1% CREAM 15 GM TUBE TP SCH ×2 (10:32→22:11)
[2016-11-05] MEDS: diphenhydrAMINE HCL 50 MG CAPSULE PO PRN (22:11)
[2016-11-05] MEDS: THIAMINE HCL 100 MG TABLET (FP) PO SCH (22:11)
[2016-11-06 06:38] VITALS: BP 108/75; PULSE 76; TEMP 97.3
--- NOTE | 2016-11-06 10:09 | DS ---
[facility] Detox Discharge Summary Admission Date: 11/01/16 Discharge Date: 11/06/16 - History Present History: Alcohol Dependence, Cannabis Dependence, Cocaine Dependence Additional Comments: DETOX COMPLETED.ALERT O X 3. NAD. - Physical Exam Results Vital Signs: Vital Signs Temperature 97.3 F L 11/06/16 06:38 Pulse Rate 76 11/06/16 06:38 Respiratory Rate 16 11/06/16 06:38 Blood Pressure 108/75 11/06/16 06:38 O2 Sat by Pulse Oximetry (%) Pertinent Admission Physical Exam Findings: WITHDRAWAL SX Laboratory Last Values WBC 7.9 K/mm3 (4.0-10.0) 11/02/16 06:05 RBC 4.20 M/mm3 (4.00-5.60) 11/02/16 06:05 Hgb 14.1 GM/dL (11.7-16.9) 11/02/16 06:05 Hct 42.6 % (35.4-49) 11/02/16 06:05 MCV 101.3 fl (80-96) H 11/02/16 06:05 MCHC 33.1 g/dl (32.0-35.9) 11/02/16 06:05 RDW 13.3 % (11.9-15.9) 11/02/16 06:05 Plt Count 341 K/MM3 (134-434) 11/02/16 06:05 MPV 7.7 fl (7.5-11.1) 11/02/16 06:05 Sodium 142 mmol/L (136-145) 11/02/16 06:05 Potassium 4.0 mmol/L (3.5-5.1) 11/02/16 06:05 Chloride 104 mmol/L (98-107) 11/02/16 06:05 Carbon Dioxide 27 mmol/L (21-32) 11/02/16 06:05 Anion Gap 11 (8-16) 11/02/16 06:05 BUN 13 mg/dL (7-18) 11/02/16 06:05 Creatinine 1.1 mg/dL (0.7-1.3) 11/02/16 06:05 Creat Clearance w eGFR > 60 (>60) 11/02/16 06:05 Random Glucose 100 mg/dL (74-106) 11/02/16 06:05 Calcium 9.3 mg/dL (8.5-10.1) 11/02/16 06:05 Total Bilirubin 0.5 mg/dL (0.2-1.0) D 11/02/16 06:05 AST 20 U/L (15-37) D 11/02/16 06:05 ALT 25 U/L (12-78) D 11/02/16 06:05 Alkaline Phosphatase 91 U/L (45-117) 11/02/16 06:05 Total Protein 7.2 g/dl (6.4-8.2) 11/02/16 06:05 Albumin 4.1 g/dl (3.4-5.0) 11/02/16 06:05 Urine Color Yellow 11/01/16 21:25 Urine Appearance Slcloudy 11/01/16 21:25 Urine pH 5.0 (5.0-8.0) 11/01/16 21:25 Ur Specific [place] 1.030 (1.001-1.035) 11/01/16 21:25 Urine Protein Negative (NEGATIVE) 11/01/16 21:25 Urine Glucose (UA) Negative (NEGATIVE) 11/01/16 21:25 Urine Ketones Negative (NEGATIVE) 11/01/16 21:25 Urine Blood Negative (NEGATIVE) 11/01/16 21:25 Urine Nitrite Negative (NEGATIVE) 11/01/16 21:25 Urine Bilirubin Negative (NEGATIVE) 11/01/16 21:25 Urine Urobilinogen 2.0 e.u/dl E.U./dl (0.2-1.0) 11/01/16 21:25 Ur Leukocyte Esterase Negative (NEGATIVE) 11/01/16 21:25 RPR Titer Nonreactive (NONREACTIVE) 11/02/16 06:05 HIV 1&2 Antibody Screen Negative 11/02/16 07:40 HIV P24 Antigen Negative 11/02/16 07:40 - Treatment Hospital Course: Detox Protocol Followed, Detoxed Safely, Responded well, Discharged Condition Good - Medication Discharge Medications: Ambulatory Orders Oxycodone HCl/Acetaminophen [Percocet 10-325 mg Tablet] 2 each PO Q6H PRN - Diagnosis (1) Alcohol dependence with uncomplicated withdrawal Status: Acute (2) Nicotine dependence Status: Acute Qualifiers: Nicotine product type: cigarettes Substance use status: in withdrawal Qualified Code(s): F17.213 - Nicotine dependence, cigarettes, with withdrawal (3) Cannabis dependence, uncomplicated Status: Acute (4) Cocaine dependence, uncomplicated Status: Acute (5) History of facial fracture Status: Resolved - AMA Did Patient Leave Against Medical Advice: No
== END 2016-11-06 09:29 | disposition home or self-care (01) | DRG 774 ==
LOC: YASAS 11:13 → Y3N 17:10
PROVIDERS: ADMIT Internal Medicine; ATTEND Internal Medicine
PROC: HZ2ZZZZ Detoxification Services for Substance Abuse Treatment (ICD-10-PCS; principal; 2016-11-01)
DX: F10.230 Alcohol dependence with withdrawal, uncomplicated (principal); F14.20 Cocaine dependence, uncomplicated; F12.20 Cannabis dependence, uncomplicated; F17.210 Nicotine dependence, cigarettes, uncomplicated; Z87.81 Personal history of (healed) traumatic fracture; Z86.73 Personal history of transient ischemic attack (TIA), and cerebral infarction without residual deficits; Z87.438 Personal history of other diseases of male genital organs; Z91.5 Personal history of self-harm
CPT/HCPCS: 36415; 80053; 81003; 85027; 86593; 87389; 93005; 93010

== ENCOUNTER 2017-01-24 13:23 | Inpatient (IN) | payer OTHER ==
[2017-01-24 16:32] VITALS: BMI 27.2
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
[2017-01-24] MEDS ORDERED: MAG HYDROX/AL HYDROX/SIMETH 30 ML UNIT-DOSE CUP PO PRN (20:42)
[2017-01-24] MEDS ORDERED: guaiFENesin/D-METHORPHAN HB 10 ML UNIT-DOSE CUPS PO PRN (20:42)
[2017-01-24] MEDS ORDERED: MAGNESIUM CITRATE 300 ML BOTTLE PO PRN (20:42)
[2017-01-24] MEDS ORDERED: chlordiazePOXIDE HCL 25 MG CAPSULE PO PRN (20:42)
[2017-01-24] MEDS ORDERED: LOPERAMIDE HCL 2 MG CAPSULE PO PRN (20:42)
[2017-01-24] MEDS ORDERED: P-EPHED 60MG/TRIPROLIDI 2.5MG TABLET PO PRN (20:42)
[2017-01-24] MEDS ORDERED: hydrOXYzine PAMOATE 50 MG CAPSULE (FP) PO PRN (20:42)
[2017-01-24] MEDS ORDERED: ACETAMINOPHEN 325 MG TABLET (FP) PO PRN (20:42)
[2017-01-24] MEDS ORDERED: MENTHOL/PHENOL 1 EACH UD MM PRN (20:42)
[2017-01-24] MEDS ORDERED: chlordiazePOXIDE HCL 25 MG CAPSULE PO ONE (20:42)
[2017-01-24] MEDS ORDERED: MAGNESIUM HYDROX 2400MG/30ML ORAL SUSPENSION 30 ML CUP PO PRN (20:42)
[2017-01-24] MEDS ORDERED: IBUPROFEN 600 MG TABLET (FP) PO PRN (20:42)
[2017-01-24] MEDS ORDERED: diphenhydrAMINE HCL 50 MG CAPSULE PO PRN (20:42)
[2017-01-24] MEDS: THIAMINE HCL 100 MG TABLET (FP) PO SCH (21:18)
[2017-01-24 22:33] LABS: URINE APPEARANCE CLEAR; URINE BILIRUBIN NEGATIVE (NEGATIVE); URINE BLOOD NEGATIVE (NEGATIVE); URINE COLOR YELLOW; URINE GLUCOSE (UA) NEGATIVE (NEGATIVE); URINE KETONE TRACE (NEGATIVE); URINE LEUK ESTERASE NEGATIVE (NEGATIVE); URINE NITRITE NEGATIVE (NEGATIVE)
[2017-01-24] MEDS: chlordiazePOXIDE HCL 25 MG CAPSULE PO SCH (22:39)
[2017-01-24 22:44] LABS: URINE PROTEIN 1+ (NEGATIVE)
[2017-01-24] MEDS: TOLNAFTATE 1% CREAM 15 GM TUBE TP SCH (22:46)
[2017-01-24 23:57] LABS: URINE BACTERIA RARE /hpf (NONE SEEN); URINE MUCUS RARE; URINE RBC 1 /hpf (0-3); URINE WBC 1 /hpf (3-5)
[2017-01-25] MEDS: chlordiazePOXIDE HCL 25 MG CAPSULE PO SCH ×4 (05:57→22:19)
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
[2017-01-25] MEDS: PRENATAL VITAMINS W/ FOLIC ACID TABLET (FP) PO SCH (10:41)
[2017-01-25] MEDS: TOLNAFTATE 1% CREAM 15 GM TUBE TP SCH ×2 (10:41→22:19)
[2017-01-25 10:59] LABS: MCHC 33.5 g/dl (32.0-35.9); MEAN CELL VOLUME 101.2 fl (80-96); MEAN PLT VOLUME 7.5 fl (7.5-11.1); PLATELET COUNT 362 K/MM3 (134-434); RDW 13.1 % (11.9-15.9); WHITE BLOOD COUNT 6.5 K/mm3 (4.0-10.0)
[2017-01-25 11:00] LABS: CALCIUM 8.8 mg/dL (8.5-10.1)
[2017-01-25 11:05] LABS: ALBUMIN 3.8 g/dl (3.4-5.0); ALK PHOS 94 U/L (45-117); ANION GAP 9 (8-16); BILIRUBIN,TOTAL 0.9 mg/dL (0.2-1.0); CO2 28 mmol/L (21-32); GLUCOSE,RANDOM 119 mg/dL (74-106); SGOT/AST 18 U/L (15-37); SGPT/ALT 25 U/L (12-78); TOT PROT 6.8 g/dl (6.4-8.2)
[2017-01-25 11:40] LABS: HIV 1 & 2 AB NEGATIVE; HIV 1 AGp24 NEGATIVE
--- NOTE | 2017-01-25 13:45 | PN ---
[facility] CIWA - CIWA Score Nausea/Vomitin-Int. Nausea w/Dry Heave Muscle Tremors: 4-Moderate,w/Arms Extend Anxiety: 0-No Anxiety, at Ease Agitation: 1-Slight > Activity Paroxysmal Sweats: 1-Minimal Palms Moist Orientation: 0-Oriented Tacttile Disturbances: 3-Moderate Itch/Numb/Burn Auditory Disturbances: 0-None Visual Disturbances: 1-Very Mild Sensitivity Headache: 3-Moderate CIWA-Ar Total Score: 17 S Progress Note (SOAP) Subjective: Tremors, Nausea, H/A, Body aches, Interrupted sleep. Objective: PT. A & O X 3. NO ACUTE DISTRESS. 01/25/17 13:42 Vital Signs Temperature 96.0 F L 01/25/17 10:00 Pulse Rate 106 H 01/25/17 10:00 Respiratory Rate 20 01/25/17 10:00 Blood Pressure 105/56 01/25/17 10:00 O2 Sat by Pulse Oximetry (%) Laboratory Tests 01/24/17 01/25/17 01/25/17 17:11 07:30 07:30 WBC 6.5 RBC 4.01 Hgb 13.6 Hct 40.6 MCV 101.2 H MCH 34.0 H MCHC 33.5 RDW 13.1 Plt Count 362 MPV 7.5 Sodium 141 Potassium 4.3 Chloride 104 Carbon Dioxide 28 Anion Gap 9 BUN 14 Creatinine 1.0 Creat Clearance w eGFR > 60 Random Glucose 119 H Calcium 8.8 Total Bilirubin 0.9 D AST 18 ALT 25 Alkaline Phosphatase 94 Total Protein 6.8 Albumin 3.8 Urine Color Yellow Urine Appearance Clear Urine pH 5.0 Ur Specific [place] >= 1.030 H Urine Protein 1+ H Urine Glucose (UA) Negative Urine Ketones Trace H Urine Blood Negative Urine Nitrite Negative Urine Bilirubin Negative Urine Urobilinogen 2.0 Ur Leukocyte Esterase Negative Urine RBC 1 Urine WBC 1 Urine Bacteria Rare Urine Mucus Rare HIV 1&2 Antibody Screen HIV P24 Antigen 01/25/17 07:30 WBC RBC Hgb Hct MCV MCH MCHC RDW Plt Count MPV Sodium Potassium Chloride Carbon Dioxide Anion Gap BUN Creatinine Creat Clearance w eGFR Random Glucose Calcium Total Bilirubin AST ALT Alkaline Phosphatase Total Protein Albumin Urine Color Urine Appearance Urine pH Ur Specific [place] Urine Protein Urine Glucose (UA) Urine Ketones Urine Blood Urine Nitrite Urine Bilirubin Urine Urobilinogen Ur Leukocyte Esterase Urine RBC Urine WBC Urine Bacteria Urine Mucus HIV 1&2 Antibody Screen Negative HIV P24 Antigen Negative LABS NOTED. RPR AND HCV ANTIBODY RESULTS PENDING. 01/25/17 13:44 Assessment: 01/25/17 13:42 WITHDRAWAL SYMPTOMS. Plan: CONTINUE DETOX.
[2017-01-25] MEDS: ZOLPIDEM TARTRATE 5 MG TABLET PO SCH (22:19)
[2017-01-25] MEDS: THIAMINE HCL 100 MG TABLET (FP) PO SCH (22:19)
[2017-01-26] MEDS: chlordiazePOXIDE HCL 25 MG CAPSULE PO SCH ×3 (05:43→17:10)
[2017-01-26] MEDS: PRENATAL VITAMINS W/ FOLIC ACID TABLET (FP) PO SCH (10:24)
[2017-01-26] MEDS: TOLNAFTATE 1% CREAM 15 GM TUBE TP SCH ×2 (10:24→22:21)
--- NOTE | 2017-01-26 13:37 | PN ---
[facility] CIWA - CIWA Score Nausea/Vomitin-No Nausea/No Vomiting Muscle Tremors: 4-Moderate,w/Arms Extend Anxiety: 4-Mod. Anxious/Guarded Agitation: 4-Moderately Restless Paroxysmal Sweats: 4-Forehead w/Sweat Beads Orientation: 0-Oriented Tacttile Disturbances: 1-Very Mild Itch/Numbness Auditory Disturbances: 0-None Visual Disturbances: 0-None Headache: 2-Mild CIWA-Ar Total Score: 19 S Progress Note (SOAP) Subjective: Tremor, chills, sweating, interrupted sleep, anxious Objective: 01/26/17 13:34 Last Vital Signs Temp Pulse Resp BP Pulse Ox 97.3 F L 69 18 115/76 01/26/17 10:00 01/26/17 10:00 01/26/17 10:00 01/26/17 10:00 Laboratory Tests 01/24/17 01/25/17 01/25/17 17:11 07:30 07:30 WBC 6.5 RBC 4.01 Hgb 13.6 Hct 40.6 MCV 101.2 H MCH 34.0 H MCHC 33.5 RDW 13.1 Plt Count 362 MPV 7.5 Sodium 141 Potassium 4.3 Chloride 104 Carbon Dioxide 28 Anion Gap 9 BUN 14 Creatinine 1.0 Creat Clearance w eGFR > 60 Random Glucose 119 H Calcium 8.8 Total Bilirubin 0.9 D AST 18 ALT 25 Alkaline Phosphatase 94 Total Protein 6.8 Albumin 3.8 Urine Color Yellow Urine Appearance Clear Urine pH 5.0 Ur Specific [place] >= 1.030 H Urine Protein 1+ H Urine Glucose (UA) Negative Urine Ketones Trace H Urine Blood Negative Urine Nitrite Negative Urine Bilirubin Negative Urine Urobilinogen 2.0 Ur Leukocyte Esterase Negative Urine RBC 1 Urine WBC 1 Urine Bacteria Rare Urine Mucus Rare RPR Titer HIV 1&2 Antibody Screen HIV P24 Antigen 01/25/17 07:30 WBC RBC Hgb Hct MCV MCH MCHC RDW Plt Count MPV Sodium Potassium Chloride Carbon Dioxide Anion Gap BUN Creatinine Creat Clearance w eGFR Random Glucose Calcium Total Bilirubin AST ALT Alkaline Phosphatase Total Protein Albumin Urine Color Urine Appearance Urine pH Ur Specific [place] Urine Protein Urine Glucose (UA) Urine Ketones Urine Blood Urine Nitrite Urine Bilirubin Urine Urobilinogen Ur Leukocyte Esterase Urine RBC Urine WBC Urine Bacteria Urine Mucus RPR Titer Nonreactive HIV 1&2 Antibody Screen Negative HIV P24 Antigen Negative Labs noted: UA shows 1+ protein Assessment: 01/26/17 13:36 Withdrawal symptoms Noted with Proteinuria Plan: Continue detox Proteinuria: encouraged to drink lots of water, water pitcher ordered, repeat UA
[2017-01-26] MEDS: ZOLPIDEM TARTRATE 5 MG TABLET PO SCH (22:21)
[2017-01-26] MEDS: chlordiazePOXIDE 5 MG CAPSULE PO SCH (22:21)
[2017-01-26] MEDS: THIAMINE HCL 100 MG TABLET (FP) PO SCH (22:21)
[2017-01-27] MEDS: chlordiazePOXIDE 5 MG CAPSULE PO SCH ×3 (05:51→17:07)
[2017-01-27] MEDS: TOLNAFTATE 1% CREAM 15 GM TUBE TP SCH ×2 (10:13→22:04)
[2017-01-27] MEDS: PRENATAL VITAMINS W/ FOLIC ACID TABLET (FP) PO SCH (10:13)
--- NOTE | 2017-01-27 12:03 | EKG ---
Test Reason : Blood Pressure : / mmHG Vent. Rate : 071 BPM Atrial Rate : 071 BPM P-R Int : 164 ms QRS Dur : 100 ms QT Int : 408 ms P-R-T Axes : 052 040 024 degrees QTc Int : 443 ms NORMAL SINUS RHYTHM MINIMAL VOLTAGE CRITERIA FOR LVH, MAY BE NORMAL VARIANT BORDERLINE ECG WHEN COMPARED WITH ECG OF 01-NOV-2016 17:11, NO SIGNIFICANT CHANGE WAS FOUND Confirmed by KEYLA STEIN, KING ([id number]) on 01/27/2017 12:03:05 PM Referred By: Confirmed By:KING RAMIRES MD
--- NOTE | 2017-01-27 12:03 | PN ---
[facility] Progress Note (SOAP) Subjective: Interrupted Sleep, Tremors, H/A, Sweating, Body Aches. Objective: PT. A & O X 3, OBSERVED AMBULATING ON UNIT. NO ACUTE DISTRESS. 01/27/17 12:02 Vital Signs Temperature 97.1 F L 01/27/17 09:13 Pulse Rate 81 01/27/17 09:13 Respiratory Rate 18 01/27/17 09:13 Blood Pressure 103/65 01/27/17 09:13 O2 Sat by Pulse Oximetry (%) Laboratory Tests 01/24/17 01/25/17 01/25/17 17:11 07:30 07:30 WBC 6.5 RBC 4.01 Hgb 13.6 Hct 40.6 MCV 101.2 H MCH 34.0 H MCHC 33.5 RDW 13.1 Plt Count 362 MPV 7.5 Sodium 141 Potassium 4.3 Chloride 104 Carbon Dioxide 28 Anion Gap 9 BUN 14 Creatinine 1.0 Creat Clearance w eGFR > 60 Random Glucose 119 H Calcium 8.8 Total Bilirubin 0.9 D AST 18 ALT 25 Alkaline Phosphatase 94 Total Protein 6.8 Albumin 3.8 Urine Color Yellow Urine Appearance Clear Urine pH 5.0 Ur Specific [place] >= 1.030 H Urine Protein 1+ H Urine Glucose (UA) Negative Urine Ketones Trace H Urine Blood Negative Urine Nitrite Negative Urine Bilirubin Negative Urine Urobilinogen 2.0 Ur Leukocyte Esterase Negative Urine RBC 1 Urine WBC 1 Urine Bacteria Rare Urine Mucus Rare RPR Titer HIV 1&2 Antibody Screen HIV P24 Antigen 01/25/17 07:30 WBC RBC Hgb Hct MCV MCH MCHC RDW Plt Count MPV Sodium Potassium Chloride Carbon Dioxide Anion Gap BUN Creatinine Creat Clearance w eGFR Random Glucose Calcium Total Bilirubin AST ALT Alkaline Phosphatase Total Protein Albumin Urine Color Urine Appearance Urine pH Ur Specific [place] Urine Protein Urine Glucose (UA) Urine Ketones Urine Blood Urine Nitrite Urine Bilirubin Urine Urobilinogen Ur Leukocyte Esterase Urine RBC Urine WBC Urine Bacteria Urine Mucus RPR Titer Nonreactive HIV 1&2 Antibody Screen Negative HIV P24 Antigen Negative LABS NOTED. Assessment: 01/27/17 12:02 WITHDRAWAL SYMPTOMS. Plan: CONTINUE DETOX. INCREASE PO FLUID INTAKE.
[2017-01-27] MEDS: chlordiazePOXIDE HCL 10 MG CAPSULE PO SCH (22:03)
[2017-01-27] MEDS: THIAMINE HCL 100 MG TABLET (FP) PO SCH (22:03)
[2017-01-27] MEDS: ZOLPIDEM TARTRATE 5 MG TABLET PO SCH (22:04)
[2017-01-27 22:15] LABS: URINE APPEARANCE CLEAR; URINE BILIRUBIN NEGATIVE (NEGATIVE); URINE BLOOD NEGATIVE (NEGATIVE); URINE COLOR LTYELLOW; URINE GLUCOSE (UA) NEGATIVE (NEGATIVE); URINE KETONE NEGATIVE (NEGATIVE); URINE LEUK ESTERASE NEGATIVE (NEGATIVE); URINE NITRITE NEGATIVE (NEGATIVE); URINE PROTEIN NEGATIVE (NEGATIVE); URINE UROBILINOGEN NEGATIVE mg/dL (0.2-1.0)
[2017-01-28] MEDS: chlordiazePOXIDE HCL 10 MG CAPSULE PO SCH (06:27)
[2017-01-28 09:26] VITALS: BP 109/69; PULSE 81; TEMP 97.2
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
== END 2017-01-28 09:42 | disposition home or self-care (01) | DRG 774 ==
LOC: YASAS 13:23 → Y3N 19:18
PROVIDERS: ADMIT Internal Medicine; ATTEND Internal Medicine
PROC: HZ2ZZZZ Detoxification Services for Substance Abuse Treatment (ICD-10-PCS; principal; 2017-01-28)
DX: F10.230 Alcohol dependence with withdrawal, uncomplicated (principal); F14.20 Cocaine dependence, uncomplicated; F12.20 Cannabis dependence, uncomplicated; F17.213 Nicotine dependence, cigarettes, with withdrawal; F19.24 Other psychoactive substance dependence with psychoactive substance-induced mood disorder; G47.00 Insomnia, unspecified; I69.851 Hemiplegia and hemiparesis following other cerebrovascular disease affecting right dominant side
CPT/HCPCS: 36415; 80053; 81003; 81015; 85027; 86593; 86803; 87389; 93005; 93010

== ENCOUNTER 2017-03-17 15:59 | Inpatient (IN) | payer OTHER ==
[2017-03-17 19:12] VITALS: BMI 27.6
--- NOTE | 2017-03-17 20:20 | HP ---
CIWA Score - CIWA Score Nausea/Vomitin-Mild Nausea/No Vomiting Muscle Tremors: 2 Anxiety: 2 Agitation: 1-Slight > Activity Paroxysmal Sweats: 2 Orientation: 1-Uncertain about Date Tacttile Disturbances: 1-Very Mild Itch/Numbness Auditory Disturbances: 1-Very Mild Visual Disturbances: 1-Very Mild Sensitivity Headache: 1-Very Mild CIWA-Ar Total Score: 13 Admission ROS BHS - HPI Chief Complaint: WITHDRAWAL SYMPTOMS Allergies/Adverse Reactions: Allergies Allergy/AdvReac Type Severity Reaction Status Date / Time pork derived (porcine) Allergy Severe Hives Verified 03/17/17 19:15 History of Present Illness: 46 Y.O. MAN WITH A HISTORY OF ALCOHOL AND COCAINE DEPENDENCE IS HERE SEEKING DETOX. HE WAS LAST HERE FOR DETOX IN 01/2017. HIS LONGEST PERIOD OF SOBRIETY HAS BEEN 6 YEARS AND STATES HE RELAPSED THIS YEAR. Exam Limitations: No Limitations - Ebola screening Have you traveled outside of the country in the last 21 days: No Have you had contact with anyone from an Ebola affected area: No Have you been sick,other than usual withdrawal symptoms: No - Review of Systems Constitutional: Loss of Appetite, Changes in sleep, Unintentional Wgt. Loss EENT: reports: No Symptoms Reported Respiratory: reports: No Symptoms reported Cardiac: reports: No Symptoms Reported GI: reports: Nausea : reports: No Symptoms Reported Musculoskeletal: reports: No Symptoms Reported Integumentary: reports: No Symptoms Reported Neuro: reports: No Symptoms reported Endocrine: reports: No Symptoms Reported Hematology: reports: No Symptoms Reported Psychiatric: reports: Judgement Intact, Mood/Affect Appropiate Other Systems: Reviewed and Negative Patient History - Patient Medical History Hx Anemia: No Hx Asthma: No Hx Chronic Obstructive Pulmonary Disease (COPD): No Hx Cancer: No Hx Cardiac Disorders: No Hx Congestive Heart Failure: No Hx Hypertension: No Hx Hypercholesterolemia: No Hx Pacemaker: No HX Cerebrovascular Accident: Yes (CVA w/ left hemiparesis in 2011; denies consequences) Hx Seizures: No Hx Dementia: No Hx Diabetes: No Hx Gastrointestinal Disorders: No Hx Liver Disease: No Hx Genitourinary Disorders: No Hx Sexually Transmitted Disorders: No Hx Renal Disease (ESRD): No Hx Thyroid Disease: No Hx Human Immunodeficiency Virus (HIV): No (NEGATIVE HX-LAST 11/2014) Hx Hepatitis C: No (NEGATIVE, LAST TESTED: 2015) Hx Depression: Yes (DENIES SI/HI ) Hx Suicide Attempt: No Hx Bipolar Disorder: No Hx Schizophrenia: No - Patient Surgical History Past Surgical History: No Hx Neurologic Surgery: No Hx Cataract Extraction: No Hx Cardiac Surgery: No Hx Lung Surgery: No Hx Breast Surgery: No Hx Breast Biopsy: No Hx Abdominal Surgery: No Hx Appendectomy: No Hx Cholecystectomy: No Hx Genitourinary Surgery: No Hx Section: No Hx Orthopedic Surgery: No Other Surgical History: MULTIPLE FACIAL FRACTURE BY SLAMBING TO THE GROUND BY SOME ONE. Anesthesia Reaction: No - PPD History Previous Implant?: Yes Documented Results: Negative w/proof Date: 01/08/16 Results: 0 mm PPD to be Administered?: Yes - Reproductive History Patient is a Female of Child Bearing Age (11 -55 yrs old): No - Smoking Cessation Smoking history: Current every day smoker Have you smoked in the past 12 months: Yes Aproximately how many cigarettes per day: 3 Cigars Per Day: 0 Hx Chewing Tobacco Use: No Initiated information on smoking cessation: Yes 'Breaking Loose' booklet given: 03/17/17 - Substance & Tx. History Hx Alcohol Use: Yes Hx Substance Use: Yes Substance Use Type: Alcohol, Cocaine Hx Substance Use Treatment: Yes (DETOX: 01/2017; REHAB: 09/2016) - Substances Abused Alcohol Route: Oral Frequency: Daily Amount used: liquor- 2 pints, beer - 2 six packs Age of first use: 14 Date of Last Use: 03/17/17 Cocaine Route: Inhalation Frequency: 1-2 times per week Amount used: $40 Age of first use: 14 Date of Last Use: 03/13/17 Family Disease History - Family Disease History Family Disease History: Diabetes: Grandparent (), Heart Disease: Mother () Admission Physical Exam S - Vital Signs Vital Signs: Vital Signs - 24 hr 03/17/17 19:08 Temperature 98.2 F Pulse Rate 70 Respiratory 20 Rate Blood Pressure 120/66 - Physical General Appearance: Yes: Anxious HEENTM: Yes: Hearing grossly Normal, Normocephalic, Normal Voice Respiratory: Yes: Chest Non-Tender, Lungs Clear, Normal Breath Sounds, No Respiratory Distress, No Accessory Muscle Use Neck: Yes: No masses,lesions,Nodules, Trachea in good position Breast: Yes: Breast Exam Deferred Cardiology: Yes: Regular Rhythm, Regular Rate Abdominal: Yes: Flat, Soft Genitourinary: Yes: Other (NO COMPLAINTS REPORTED) Back: Yes: Normal Inspection Musculoskeletal: Yes: full range of Motion, Gait Steady, Pelvis Stable Extremities: Yes: Normal Inspection, Normal Range of Motion, Non-Tender 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 Cleared for Admission [facility] - Detox or Rehab [facility] Level of Care: Medically Managed Detox Regimen/Protocol: Librium [facility] Breath Alcohol Content Breath Alcohol Content: 0.017 Urine Drug Screen - Results Drug Screen Negative: No Urine Drug Screen Results: LORENZO-Cocaine
[2017-03-17] MEDS ORDERED: LOPERAMIDE HCL 2 MG CAPSULE PO PRN (20:25)
[2017-03-17] MEDS ORDERED: MAGNESIUM CITRATE 300 ML BOTTLE PO PRN (20:25)
[2017-03-17] MEDS ORDERED: guaiFENesin/D-METHORPHAN HB 10 ML UNIT-DOSE CUPS PO PRN (20:25)
[2017-03-17] MEDS ORDERED: MAG HYDROX/AL HYDROX/SIMETH 30 ML UNIT-DOSE CUP PO PRN (20:25)
[2017-03-17] MEDS ORDERED: IBUPROFEN 400 MG TABLET (FP) PO PRN (20:25)
[2017-03-17] MEDS ORDERED: ACETAMINOPHEN 325 MG TABLET (FP) PO PRN (20:25)
[2017-03-17] MEDS ORDERED: MENTHOL/PHENOL 1 EACH UD MM PRN (20:25)
[2017-03-17] MEDS ORDERED: chlordiazePOXIDE HCL 25 MG CAPSULE PO PRN (20:25)
[2017-03-17] MEDS ORDERED: P-EPHED 60MG/TRIPROLIDI 2.5MG TABLET PO PRN (20:25)
[2017-03-17] MEDS ORDERED: MAGNESIUM HYDROX 2400MG/30ML ORAL SUSPENSION 30 ML CUP PO PRN (20:25)
[2017-03-17] MEDS: THIAMINE HCL 100 MG TABLET (FP) PO SCH (22:30)
[2017-03-17] MEDS: chlordiazePOXIDE HCL 25 MG CAPSULE PO SCH (22:30)
[2017-03-17 23:18] LABS: URINE APPEARANCE CLEAR; URINE BILIRUBIN NEGATIVE (NEGATIVE); URINE BLOOD NEGATIVE (NEGATIVE); URINE COLOR LT. YELLOW; URINE GLUCOSE (UA) NEGATIVE (NEGATIVE); URINE KETONE NEGATIVE (NEGATIVE); URINE NITRITE NEGATIVE (NEGATIVE); URINE PROTEIN NEGATIVE (NEGATIVE); URINE UROBILINOGEN 0.2 mg/dL (0.2-1.0)
[2017-03-18] MEDS: chlordiazePOXIDE HCL 25 MG CAPSULE PO SCH ×4 (06:36→22:05)
[2017-03-18 09:38] LABS: MCH 33.3 pg (25.7-33.7); MCHC 34.1 g/dl (32.0-35.9); MEAN CELL VOLUME 97.5 fl (80-96); MEAN PLT VOLUME 7.1 fl (7.5-11.1); PLATELET COUNT 375 K/MM3 (134-434); RDW 12.6 % (11.9-15.9); WHITE BLOOD COUNT 6.3 K/mm3 (4.0-10.0)
[2017-03-18] MEDS: PRENATAL VITAMINS W/ FOLIC ACID TABLET (FP) PO SCH (10:09)
[2017-03-18 10:13] LABS: ALBUMIN 3.5 g/dl (3.4-5.0); ALK PHOS 84 U/L (45-117); ANION GAP 7 (8-16); BILIRUBIN,TOTAL 0.4 mg/dL (0.2-1.0); CALCIUM 8.9 mg/dL (8.5-10.1); CO2 29 mmol/L (21-32); GLUCOSE,RANDOM 108 mg/dL (74-106); SGOT/AST 9 U/L (15-37); SGPT/ALT 20 U/L (12-78); TOT PROT 6.3 g/dl (6.4-8.2)
--- NOTE | 2017-03-18 11:37 | PN ---
S CIWA - CIWA Score Nausea/Vomitin Muscle Tremors: 4-Moderate,w/Arms Extend Anxiety: 3 Agitation: 2 Paroxysmal Sweats: 3 Orientation: 0-Oriented Tacttile Disturbances: 2-Mild Itch/Numbness/Burn Auditory Disturbances: 2-Mild Harshness/Frighten Visual Disturbances: 0-None Headache: 0-None Present CIWA-Ar Total Score: 19 BHS Progress Note (SOAP) Subjective: Tremors, Stomach Cramping, Fatigue. Objective: PT. A & O X 3. NO ACUTE DISTRESS. PT. DENIES CHEST PAIN. 03/18/17 11:34 Vital Signs Temperature 97.8 F 03/18/17 09:50 Pulse Rate 67 03/18/17 09:50 Respiratory Rate 18 03/18/17 09:50 Blood Pressure 107/70 03/18/17 09:50 O2 Sat by Pulse Oximetry (%) Laboratory Results - last 24 hr 03/17/17 03/18/17 03/18/17 18:30 07:00 07:00 WBC 6.3 RBC 4.01 Hgb 13.3 Hct 39.1 MCV 97.5 H MCH 33.3 MCHC 34.1 RDW 12.6 Plt Count 375 MPV 7.1 L Sodium 141 Potassium 4.0 Chloride 105 Carbon Dioxide 29 Anion Gap 7 L BUN 17 D Creatinine 1.0 Creat Clearance w eGFR > 60 Random Glucose 108 H Calcium 8.9 Total Bilirubin 0.4 D AST 9 L D ALT 20 Alkaline Phosphatase 84 Total Protein 6.3 L Albumin 3.5 Urine Color Lt. yellow Urine Appearance Clear Urine pH 6.0 Urine Protein Negative Urine Glucose (UA) Negative Urine Ketones Negative Urine Blood Negative Urine Nitrite Negative Urine Bilirubin Negative Urine Urobilinogen 0.2 LABS NOTED. RPR, HIV AB, AND HCV AB RESULTS PENDING. 03/18/17 11:36 Assessment: 03/18/17 11:36 WITHDRAWAL SYMPTOMS. Plan: CONTINUE DETOX. INCREASE PO FLUID INTAKE.
[2017-03-18 12:38] LABS: HIV 1 & 2 AB NEGATIVE; HIV 1 AGp24 NEGATIVE
--- NOTE | 2017-03-18 12:53 | EKG ---
Test Reason : Blood Pressure : / mmHG Vent. Rate : 056 BPM Atrial Rate : 056 BPM P-R Int : 178 ms QRS Dur : 106 ms QT Int : 436 ms P-R-T Axes : 054 044 036 degrees QTc Int : 420 ms SINUS BRADYCARDIA MODERATE VOLTAGE CRITERIA FOR LVH, MAY BE NORMAL VARIANT BORDERLINE ECG WHEN COMPARED WITH ECG OF 24-JAN-2017 20:25, NO SIGNIFICANT CHANGE WAS FOUND Confirmed by GUICHO PHILLIP MD ([id number]) on 03/18/2017 12:52:36 PM Referred By: Confirmed By:GUICHO PHILLIP MD
[2017-03-18] MEDS: THIAMINE HCL 100 MG TABLET (FP) PO SCH (22:04)
[2017-03-18] MEDS: diphenhydrAMINE HCL 50 MG CAPSULE PO PRN (22:05)
[2017-03-19] MEDS: chlordiazePOXIDE HCL 25 MG CAPSULE PO SCH ×3 (06:14→16:51)
[2017-03-19] MEDS: PRENATAL VITAMINS W/ FOLIC ACID TABLET (FP) PO SCH (10:17)
--- NOTE | 2017-03-19 12:30 | PN ---
[facility] CIWA - CIWA Score Nausea/Vomitin-Int. Nausea w/Dry Heave Muscle Tremors: 4-Moderate,w/Arms Extend Anxiety: 3 Agitation: 2 Paroxysmal Sweats: 2 Orientation: 0-Oriented Tacttile Disturbances: 2-Mild Itch/Numbness/Burn Auditory Disturbances: 1-Very Mild Visual Disturbances: 0-None Headache: 0-None Present CIWA-Ar Total Score: 18 S Progress Note (SOAP) Subjective: Nausea, Tremors, Body Aches, Stomach Cramping. Objective: PT. A & O X 3. NO ACUTE DISTRESS. 03/19/17 12:28 Vital Signs Temperature 97.4 F L 03/19/17 10:03 Pulse Rate 77 03/19/17 10:03 Respiratory Rate 18 03/19/17 10:03 Blood Pressure 108/70 03/19/17 10:03 O2 Sat by Pulse Oximetry (%) Laboratory Tests 03/17/17 03/17/17 03/18/17 07:00 18:30 07:00 WBC 6.3 RBC 4.01 Hgb 13.3 Hct 39.1 MCV 97.5 H MCH 33.3 MCHC 34.1 RDW 12.6 Plt Count 375 MPV 7.1 L Sodium Potassium Chloride Carbon Dioxide Anion Gap BUN Creatinine Creat Clearance w eGFR Random Glucose Calcium Total Bilirubin AST ALT Alkaline Phosphatase Total Protein Albumin Urine Color Lt. yellow Urine Appearance Clear Urine pH 6.0 Ur Specific [place] 1.025 Urine Protein Negative Urine Glucose (UA) Negative Urine Ketones Negative Urine Blood Negative Urine Nitrite Negative Urine Bilirubin Negative Urine Urobilinogen 0.2 RPR Titer Hepatitis C Antibody <0.1 HIV 1&2 Antibody Screen HIV P24 Antigen 03/18/17 03/18/17 03/18/17 07:00 07:00 07:00 WBC RBC Hgb Hct MCV MCH MCHC RDW Plt Count MPV Sodium 141 Potassium 4.0 Chloride 105 Carbon Dioxide 29 Anion Gap 7 L BUN 17 D Creatinine 1.0 Creat Clearance w eGFR > 60 Random Glucose 108 H Calcium 8.9 Total Bilirubin 0.4 D AST 9 L D ALT 20 Alkaline Phosphatase 84 Total Protein 6.3 L Albumin 3.5 Urine Color Urine Appearance Urine pH Ur Specific [place] Urine Protein Urine Glucose (UA) Urine Ketones Urine Blood Urine Nitrite Urine Bilirubin Urine Urobilinogen RPR Titer Nonreactive Hepatitis C Antibody HIV 1&2 Antibody Screen Negative HIV P24 Antigen Negative LABS NOTED. Assessment: 03/19/17 12:29 WITHDRAWAL SYMPTOMS. Plan: CONTINUE DETOX.
[2017-03-19] MEDS: chlordiazePOXIDE 5 MG CAPSULE PO SCH (22:07)
[2017-03-19] MEDS: diphenhydrAMINE HCL 50 MG CAPSULE PO PRN (22:07)
[2017-03-19] MEDS: THIAMINE HCL 100 MG TABLET (FP) PO SCH (22:07)
[2017-03-20] MEDS: chlordiazePOXIDE 5 MG CAPSULE PO SCH ×3 (06:33→17:28)
[2017-03-20] MEDS: PRENATAL VITAMINS W/ FOLIC ACID TABLET (FP) PO SCH (10:39)
--- NOTE | 2017-03-20 11:37 | PN ---
BHS Progress Note (SOAP) Subjective: Interrupted sleep, Tremors, Body Aches. Objective: PT. A & O X 3. NO ACUTE DISTRESS. PT. DENIES CHEST PAIN. 03/20/17 11:35 Vital Signs Temperature 97.1 F L 03/20/17 10:17 Pulse Rate 72 03/20/17 10:17 Respiratory Rate 18 03/20/17 10:17 Blood Pressure 134/89 03/20/17 10:17 O2 Sat by Pulse Oximetry (%) Laboratory Tests 03/17/17 03/17/17 03/18/17 07:00 18:30 07:00 WBC 6.3 RBC 4.01 Hgb 13.3 Hct 39.1 MCV 97.5 H MCH 33.3 MCHC 34.1 RDW 12.6 Plt Count 375 MPV 7.1 L Sodium Potassium Chloride Carbon Dioxide Anion Gap BUN Creatinine Creat Clearance w eGFR Random Glucose Calcium Total Bilirubin AST ALT Alkaline Phosphatase Total Protein Albumin Urine Color Lt. yellow Urine Appearance Clear Urine pH 6.0 Ur Specific [place] 1.025 Urine Protein Negative Urine Glucose (UA) Negative Urine Ketones Negative Urine Blood Negative Urine Nitrite Negative Urine Bilirubin Negative Urine Urobilinogen 0.2 RPR Titer Hepatitis C Antibody <0.1 HIV 1&2 Antibody Screen HIV P24 Antigen 03/18/17 03/18/17 03/18/17 07:00 07:00 07:00 WBC RBC Hgb Hct MCV MCH MCHC RDW Plt Count MPV Sodium 141 Potassium 4.0 Chloride 105 Carbon Dioxide 29 Anion Gap 7 L BUN 17 D Creatinine 1.0 Creat Clearance w eGFR > 60 Random Glucose 108 H Calcium 8.9 Total Bilirubin 0.4 D AST 9 L D ALT 20 Alkaline Phosphatase 84 Total Protein 6.3 L Albumin 3.5 Urine Color Urine Appearance Urine pH Ur Specific [place] Urine Protein Urine Glucose (UA) Urine Ketones Urine Blood Urine Nitrite Urine Bilirubin Urine Urobilinogen RPR Titer Nonreactive Hepatitis C Antibody HIV 1&2 Antibody Screen Negative HIV P24 Antigen Negative LABS NOTED. Assessment: 03/20/17 11:36 WITHDRAWAL SYMPTOMS. Plan: CONTINUE DETOX.
[2017-03-20] MEDS: diphenhydrAMINE HCL 50 MG CAPSULE PO PRN (22:12)
[2017-03-20] MEDS: chlordiazePOXIDE HCL 10 MG CAPSULE PO SCH (22:12)
[2017-03-20] MEDS: THIAMINE HCL 100 MG TABLET (FP) PO SCH (22:12)
[2017-03-21] MEDS: chlordiazePOXIDE HCL 10 MG CAPSULE PO SCH (05:52)
[2017-03-21 10:27] VITALS: BP 105/66; PULSE 75; TEMP 97.1
--- NOTE | 2017-03-21 10:45 | DS ---
[facility] Detox Discharge Summary Admission Date: 03/17/17 Discharge Date: 03/21/17 - History Present History: Alcohol Dependence, Cocaine Dependence Pertinent Past History: S/P CVA - Physical Exam Results Vital Signs: Vital Signs Temperature 97.1 F L 03/21/17 10:26 Pulse Rate 75 03/21/17 10:26 Respiratory Rate 18 03/21/17 10:26 Blood Pressure 105/66 03/21/17 10:26 O2 Sat by Pulse Oximetry (%) Pertinent Admission Physical Exam Findings: Withdrawal sx. Laboratory Last Values WBC 6.3 K/mm3 (4.0-10.0) 03/18/17 07:00 RBC 4.01 M/mm3 (4.00-5.60) 03/18/17 07:00 Hgb 13.3 GM/dL (11.7-16.9) 03/18/17 07:00 Hct 39.1 % (35.4-49) 03/18/17 07:00 MCV 97.5 fl (80-96) H 03/18/17 07:00 MCH 33.3 pg (25.7-33.7) 03/18/17 07:00 MCHC 34.1 g/dl (32.0-35.9) 03/18/17 07:00 RDW 12.6 % (11.9-15.9) 03/18/17 07:00 Plt Count 375 K/MM3 (134-434) 03/18/17 07:00 MPV 7.1 fl (7.5-11.1) L 03/18/17 07:00 Sodium 141 mmol/L (136-145) 03/18/17 07:00 Potassium 4.0 mmol/L (3.5-5.1) 03/18/17 07:00 Chloride 105 mmol/L (98-107) 03/18/17 07:00 Carbon Dioxide 29 mmol/L (21-32) 03/18/17 07:00 Anion Gap 7 (8-16) L 03/18/17 07:00 BUN 17 mg/dL (7-18) D 03/18/17 07:00 Creatinine 1.0 mg/dL (0.7-1.3) 03/18/17 07:00 Creat Clearance w eGFR > 60 (>60) 03/18/17 07:00 Random Glucose 108 mg/dL (74-106) H 03/18/17 07:00 Calcium 8.9 mg/dL (8.5-10.1) 03/18/17 07:00 Total Bilirubin 0.4 mg/dL (0.2-1.0) D 03/18/17 07:00 AST 9 U/L (15-37) L D 03/18/17 07:00 ALT 20 U/L (12-78) 03/18/17 07:00 Alkaline Phosphatase 84 U/L (45-117) 03/18/17 07:00 Total Protein 6.3 g/dl (6.4-8.2) L 03/18/17 07:00 Albumin 3.5 g/dl (3.4-5.0) 03/18/17 07:00 Urine Color Lt. yellow 03/17/17 18:30 Urine Appearance Clear 03/17/17 18:30 Urine pH 6.0 (5.0-8.0) 03/17/17 18:30 Ur Specific [place] 1.025 (1.005-1.025) 03/17/17 18:30 Urine Protein Negative (NEGATIVE) 03/17/17 18:30 Urine Glucose (UA) Negative (NEGATIVE) 03/17/17 18:30 Urine Ketones Negative (NEGATIVE) 03/17/17 18:30 Urine Blood Negative (NEGATIVE) 03/17/17 18:30 Urine Nitrite Negative (NEGATIVE) 03/17/17 18:30 Urine Bilirubin Negative (NEGATIVE) 03/17/17 18:30 Urine Urobilinogen 0.2 mg/dL (0.2-1.0) 03/17/17 18:30 RPR Titer Nonreactive (NONREACTIVE) 03/18/17 07:00 Hepatitis C Antibody <0.1 s/co ratio (0.0-0.9) 03/17/17 07:00 HIV 1&2 Antibody Screen Negative 03/18/17 07:00 HIV P24 Antigen Negative 03/18/17 07:00 labs noted - Treatment Hospital Course: Detox Protocol Followed, Detoxed Safely, Responded well, Discharged Condition Good Patient has Accepted a Rehab Referral to: Pt. refused in-pt. rehab, he's referred to [facility], [place], [facility] [phone] - Medication Discharge Medications: Ambulatory Orders NK [No Known Home Medication] 03/17/17 - Diagnosis (1) Alcohol dependence with uncomplicated withdrawal Current Visit: Yes Status: Acute (2) Cocaine dependence, uncomplicated Current Visit: Yes Status: Acute (3) Nicotine dependence Current Visit: Yes Status: Chronic Qualifiers: Nicotine product type: cigarettes Substance use status: uncomplicated Qualified Code(s): F17.210 - Nicotine dependence, cigarettes, uncomplicated (4) Insomnia Current Visit: Yes Status: Acute Qualifiers: Insomnia type: alcohol-induced Qualified Code(s): F10.982 - Alcohol use, unspecified with alcohol-induced sleep disorder - AMA Did Patient Leave Against Medical Advice: No
== END 2017-03-21 10:31 | disposition home or self-care (01) | DRG 774 ==
LOC: YASAS 15:59 → Y3N 19:22
PROVIDERS: ADMIT Internal Medicine; ATTEND Internal Medicine
PROC: HZ2ZZZZ Detoxification Services for Substance Abuse Treatment (ICD-10-PCS; principal; 2017-03-17)
DX: F10.230 Alcohol dependence with withdrawal, uncomplicated (principal); F14.20 Cocaine dependence, uncomplicated; F17.210 Nicotine dependence, cigarettes, uncomplicated; F32.9 Major depressive disorder, single episode, unspecified; I69.854 Hemiplegia and hemiparesis following other cerebrovascular disease affecting left non-dominant side; F10.282 Alcohol dependence with alcohol-induced sleep disorder
CPT/HCPCS: 36415; 80053; 81003; 85027; 86593; 86803; 87389; 93005; 93010